=== PATIENT | female | born 1940 | race Caucasian/White ===

== ENCOUNTER 2017-07-08 05:09 | Emergency (ER) | payer MEDICARE, OTHER ==
[~2017-07-08] VITALS: Ht 152.4 cm; Wt 62.5 kg
[~2017-07-08 05:09] MED LIST: ARAV10TA PO; ASPI81TA82 PO; ATOR40TA49 PO; CETI10 PO; CHOL1CAP6 PO; HYDR-3533 PO; LOSA50TA PO; LOTE0.5G; MECL-62 PO; MELA5CAP2 PO; METO50TA PO; NIFE20CA PO; POTA-243 PO; PROB1TAB PO; REFR0.5D4 EACH EYE; TUMS500C PO; VITA100017 PO; tylenol arthritis PO
[2017-07-08 05:12] VITALS: BP 230/95; PULSE 80; RESP 16; TEMP 98; O2SAT 98
[2017-07-08] MEDS ORDERED: NIFE60TA58 PO (06:39)
[2017-07-08] MEDS ORDERED: ASPI-516 CHEW (06:39)
[2017-07-08] MEDS ORDERED: MECL-62 PO (06:39)
[2017-07-08] MEDS ORDERED: MELA5 PO (06:39)
[2017-07-08] MEDS ORDERED: HYDR-3516 PO (06:39)
[2017-07-08] MEDS ORDERED: ARAV10TA PO (06:39)
[2017-07-08] MEDS ORDERED: ATOR40TA16 PO (06:39)
[2017-07-08] MEDS ORDERED: CHOL10008 PO (06:39)
[2017-07-08] MEDS ORDERED: POTA10CA PO (06:39)
[2017-07-08] MEDS ORDERED: METO50TA PO (06:39)
[2017-07-08] MEDS ORDERED: TUMS500C CHEW (06:39)
[2017-07-08 06:40] VITALS: RESP 18
[2017-07-08] MEDS ORDERED: KETOROLAC TROMETHAMINE 60 MG/2 ML (IM) VIAL IM ONE (07:00)
[2017-07-08] MEDS ORDERED: SODIUM CHLORIDE 0.9% FLUSH 10 ML FLUSH IV FLUSH PRN (07:00)
--- NOTE | 2017-07-08 07:07 | PD ---
HPI Chief Complaint: Pain: Acute or Chronic Time Seen by Provider: 06:54 Travel History International Travel<30 days: No Contact w/Intl Traveler<30days: No Traveled to known affect area: No History of Present Illness HPI 77 years old female complains of left flank pain. Patient states that she started having pain across her midback area yesterday. Patient states that the pain more concentrated to the left side midback and left flank area this morning. Patient states that the pain is cramping pain and sharp pain. Patient denies any pain radiation. Patient states that she has nausea but no vomiting or diarrhea. Patient states that she had dysuria this morning. Patient denies any vaginal discharge or bleeding. Patient has history of spinal stenosis of the lumbar spine. On a scale of 1-10 the pain is an 8. 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.) Endocrine: No Gastrointestinal Disorders: No GERD: No Glaucoma: No Genitourinary: Yes Headaches: Yes Hepatitis: No Hiatal Hernia: No Heparin Induced Thrombocytopen: No Hypertension: Yes Immune Disorder: Yes ([employer]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) Implanted Vascular Access Dvce: No Kidney Stones: No Musculoskeletal: Yes Neurologic: Yes (VERTIGO) Psychiatric: No Reproductive: No Respiratory: No Immunizations Current: Yes Migraines: Yes (IN THE PAST 17YRS-34YRS OLD) Radiation Therapy: No Renal Failure: No Seizures: No Sickle Cell Disease: No Thyroid Disease: No Ulcer: No Tetanus Vaccination: > 5 Years Influenza Vaccination: Yes Menopausal: Yes Past Surgical History Abdominal Surgery: Yes (APPENDECTOMY) AICD: No Appendectomy: Yes Arteriovenous Shunt: No Ear Surgery: No Endocrine Surgery: No Eye Surgery: Yes (BILATERAL CATARACTS) Genitourinary Surgery: No Gynecologic Surgery: No Insulin Pump: No Joint Replacement: No Oral Surgery: No Pacemaker: No Other Surgery: Yes Social History Alcohol Use: No Tobacco Use: No (QUIT 22 YRS AGO) Substance Use: No Allergies-Medications (Allergen,Severity, Reaction): Coded Allergies: Sulfa (Sulfonamide Antibiotics) (Unverified Allergy, Severe, RASH, 07/08/17 ) chlorzoxazone (Unverified Allergy, Severe, BECAME HYSTERICAL, 07/08/17) methylprednisolone (Unverified Allergy, Severe, UNK, 07/08/17) 200MG penicillin G (Unverified Allergy, Severe, SOB RASH, 07/08/17) Uncoded Allergies: CARBOCAINE (Allergy, Unknown, UNK, 04/12/15) Reported Meds & Prescriptions Reported Meds & Active Scripts Active Losartan (Losartan Potassium) 50 Mg Tab 50 Mg PO DAILY Lortab 5 mg/325 mg (Hydrocodone/Acetaminophen 5 mg/325 mg) 1 Tab 1 Tab PO Q6H PRN Reported Potassium Chloride ER (Potassium Chloride) 10 Meq Cap 10 Meq PO BID Nifedipine ER 24 HR (Nifedipine) 60 Mg Tab 60 Mg PO BID Metoprolol Tartrate 50 Mg Tab 50 Mg PO BID Melatonin 5 Mg Tab 5 Mg PO HS Meclizine (Meclizine HCl) 25 Mg Tab 25 Mg PO TID PRN Arava (Leflunomide) 10 Mg Tab 10 Mg PO 3XWEEK Hydrocodone-Acetaminophen 5-325 mg Tab 1 Tab PO Q6H PRN Vitamin D3 (Cholecalciferol) 1,000 Unit Cap 1,000 Units PO DAILY Tums (Calcium Carbonate (Antacid)) 500 Mg Chew 500 Mg CHEW PRN Atorvastatin (Atorvastatin Calcium) 40 Mg Tab 40 Mg PO HS Aspirin 81 Mg Chew 81 Mg CHEW DAILY Lipitor 40 Mg Tab (Atorvastatin Calcium) 40 Mg Tab 60 Mg PO DAILY Vitamin C (Ascorbic Acid) 1,000 Mg Tab 1,000 Mg PO DAILY Tums (Calcium Carbonate) 500 Mg Chew 500 Mg PO DAILY PRN Refresh Tears (Carboxymethylcellulose Sodium) 0.5 % Josiane 1 Drop EACH EYE BID PRN Review of Systems General / Constitutional: No: Fever Eyes: No: Visual changes HENT: No: Headaches Cardiovascular: No: Chest Pain or Discomfort Respiratory: No: Shortness of Breath Gastrointestinal: No: Abdominal Pain Genitourinary: No: Dysuria Musculoskeletal: No: Pain Skin: No Rash Neurologic: No: Weakness Psychiatric: No: Depression Endocrine: No: Polydipsia Hematologic/Lymphatic: No: Easy Bruising Physical Exam Narrative GENERAL: Well-nourished, well-developed patient. SKIN: Focused skin assessment warm/dry. HEAD: Normocephalic. EYES: No scleral icterus. No injection or drainage. NECK: Supple, trachea midline. No JVD or lymphadenopathy. CARDIOVASCULAR: Regular rate and rhythm without murmurs, gallops, or rubs. RESPIRATORY: Breath sounds equal bilaterally. No accessory muscle use. GASTROINTESTINAL: Abdomen soft, non-tender, nondistended. MUSCULOSKELETAL: No cyanosis, or edema. BACK: Patient has moderate tenderness on palpation left flank area and upper lumbar area of the left side. No midline tenderness. Neurologic exam normal. Data Data Last Documented VS Vital Signs Date Time Temp Pulse Resp B/P (MAP) Pulse Ox O2 Delivery O2 Flow Rate FiO2 07/08/17 06:43 18 07/08/17 05:12 98.0 80 230/95 (140) 98 Orders Orders Urinalysis - C+S If Indicated (07/08/17 07:00) Ct Abd/Pel W/O Iv Contrast (07/08/17 07:00) Sodium Chloride 0.9% Flush (Ns Flush) (07/08/17 07:00) Ketorolac Inj (Toradol Inj) (07/08/17 07:00) Labs Laboratory Tests Test 07/08/17 06:55 Urine Collection Type CLEAN CATCH Urine Color YELLOW Urine Turbidity CLEAR Urine pH 6.0 Urine Specific [place] 1.009 Urine Protein NEG mg/dL Urine Glucose (UA) NEG mg/dL Urine Ketones NEG mg/dL Urine Occult Blood TRACE Urine Nitrite NEG Urine Bilirubin NEG Urine Leukocyte Esterase SMALL Urine RBC 10-14 /hpf Urine WBC 3-5 /hpf Urine Squamous Epithelial Cells 6-8 /hpf Urine Bacteria RARE /hpf Microscopic Urinalysis Comment CULT NOT INDICATED Urine Collection Time 06:55 [facility] Medical Decision Making Medical Screen Exam Complete: Yes Emergency Medical Condition: Yes Differential Diagnosis 77 years old female with left flank pain. Narrative Course Differential diagnoses including musculoskeletal, pyelonephritis, nephrolithiasis. Diagnosis Primary Impression: Back pain Qualified Codes: M54.9 - Dorsalgia, unspecified Additional Impression: Hematuria Qualified Codes: R31.29 - Other microscopic hematuria Patient Instructions: General Instructions Additional Instructions: Continue with hydrocodone as needed for back pain. Cipro as directed. Follow- up with personal physician. Return if worse. Med/Other Pt SpecificInfo: Prescription(s) given Scripts Ciprofloxacin (Cipro) 500 Mg Tab 500 MG PO BID for Infection, #6 TAB 0 Refills Prov: Wilmer Martínez MD 07/08/17 Hydrocodone-Acetaminophen ([place]) 5 Mg-325 Mg Tab 1 TAB PO Q6H Y for PAIN, #20 TAB 0 Refills Prov: Wilmer Martínez MD 07/08/17 Disposition: 01 DISCHARGE HOME Condition: Stable Wilmer Martínez MD Jul 08, 2017 07:07
[2017-07-08 07:19] LABS: GLUCOSE,URINE NEG (NEG); KETONE, URINE NEG (NEG); NITRITE,URINE NEG (NEG)
[2017-07-08 07:20] LABS: BLOOD, URINE TRACE (NEG)
[2017-07-08 07:29] LABS: METHOD OF COLLECTION CLEAN CATCH; URINE COLOR YELLOW (YELLW/STRAW)
[2017-07-08 07:30] LABS: BACTERIA, URINE RARE /hpf; COMMENT (UR) CULT NOT INDICATED; CULTURE IF INDICATED CULT NOT INDICATED
--- NOTE | 2017-07-08 07:45 | RADRPT ---
EXAM DATE/TIME: 07/08/2017 07:24 [place] COMPARISON: No previous studies available for comparison. INDICATIONS : Left flank pain, nausea. ORAL CONTRAST: No oral contrast ingested. RADIATION DOSE: 12.20 CTDIvol (mGy) MEDICAL HISTORY : Renal disease, end stage. Hypertension. Rheumatoid arthritis.Spinal stenosis. SURGICAL HISTORY : Appendectomy. ENCOUNTER: Initial ACUITY: 1 day PAIN SCALE: 8/10 LOCATION: Left flank TECHNIQUE: Volumetric scanning of the abdomen and pelvis was performed. Using automated exposure control and ad justment of the mA and/or kV according to patient size, radiation dose was kept as low as reasonably achievable to obtain optimal diagnostic quality images. DICOM format image data is available electro nically for review and comparison. FINDINGS: LOWER LUNGS: The visualized lower lungs are clear. LIVER: Homogeneous density without lesion. There is no dilation of the biliary tree. No calcified gallston es. Low-density lesion in the medial left lobe, likely benign. SPLEEN: Normal size without lesion. PANCREAS: Within normal limits. KIDNEYS: Normal in size and shape. There is no mass, stone, or hydronephrosis. ADRENAL GLANDS: Within normal limits. VASCULAR: There is no aortic aneurysm. Extensive atherosclerotic changes of the abdominal aorta and branches. BOWEL/MESENTERY: The stomach, small bowel, and colon demonstrate no acute abnormality. There is no free intraperitone al air or fluid. ABDOMINAL WALL: Within normal limits. RETROPERITONEUM: There is no lymphadenopathy. BLADDER: No wall thickening or mass. REPRODUCTIVE: Within normal limits. INGUINAL: There is no lymphadenopathy or hernia. MUSCULOSKELETAL: Within normal limits for patient age. CONCLUSION: 1. No renal calculi or hydronephrosis. 2. No acute inflammatory process. 3. Subcentimeter hepatic low-density. Jason Rapp MD on July 08, 2017 at 7:40 Board Certified Radiologist. This report was verified electronically.
[2017-07-08] MEDS ORDERED: NORC5TAB PO (08:04)
[2017-07-08] MEDS ORDERED: CIPR-9 PO (08:05)
[2017-07-08 08:06] VITALS: BP 167/77; RESP 18
== END 2017-07-08 08:17 | disposition home or self-care (01) ==
LOC: PHED 05:09
DX: M54.9 Dorsalgia, unspecified (principal); R31.29 Other microscopic hematuria; R30.0 Dysuria
CPT/HCPCS: 74176; 81001; 96372; 99285; J1885

== ENCOUNTER 2017-07-19 08:48 | Emergency (ER) | payer MEDICARE, OTHER ==
[~2017-07-19] VITALS: Ht 152.4 cm; Wt 63.0 kg
[~2017-07-19 08:48] MED LIST changes: +ASPI-516 CHEW; -ASPI81TA82 PO; +ATOR40TA16 PO; -CETI10 PO; +CHOL10008 PO; -CHOL1CAP6 PO; +CIPR-9 PO; +HYDR-3516 PO; -LOTE0.5G; +MELA5 PO; -MELA5CAP2 PO; -NIFE20CA PO; +NIFE60TA58 PO; +NORC5TAB PO; -POTA-243 PO; +POTA10CA PO; -PROB1TAB PO; +TUMS500C CHEW; -tylenol arthritis PO
[2017-07-19 09:07] VITALS: BP 163/79; PULSE 76; RESP 16; TEMP 98; O2SAT 97
--- NOTE | 2017-07-19 09:26 | PD ---
HPI Chief Complaint: Pain: Acute or Chronic Time Seen by Provider: 09:13 Travel History International Travel<30 days: No Contact w/Intl Traveler<30days: No Traveled to known affect area: No History of Present Illness HPI Patient comes in complaining of continued back pain ongoing for at least 3 weeks. Patient was seen here on the second for the same. She had a CT and UA done at that time. Patient states she is taking her hydrocodone along with Flexeril 10 mg for the pain. Patient took hydrocodone prior coming to the emergency department today last took a Flexeril last night. Pain is a sharp burning pain in her right flank that radiates to the left. Patient awoke with worsening pain today. Patient reports she has an appointment with pain management on Monday. Patient states that she followed up with her primary care doctor and was sent to urologist who then sent her to a back specialist. Patient reports has appointment with the back specialist in August. Pain is worse with certain movement. Denies any fevers, chest pain, shortness breath, cough, loss or change in bowel or bladder, or numbness or tingling anywhere. Denies any recent trauma. 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.) Endocrine: No Gastrointestinal Disorders: No GERD: No Glaucoma: No Genitourinary: Yes Headaches: Yes Hepatitis: No Hiatal Hernia: No Heparin Induced Thrombocytopen: No Hypertension: Yes Immune Disorder: Yes ([employer]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) Implanted Vascular Access Dvce: No Kidney Stones: No Musculoskeletal: Yes Neurologic: Yes (VERTIGO) Psychiatric: No Reproductive: No Respiratory: No Immunizations Current: Yes Migraines: Yes (IN THE PAST 17YRS-35YRS OLD) Radiation Therapy: No Renal Failure: No Seizures: No Sickle Cell Disease: No Thyroid Disease: No Ulcer: No ?: Not Menopausal: Yes Past Surgical History Abdominal Surgery: Yes (APPENDECTOMY) AICD: No Appendectomy: Yes Arteriovenous Shunt: No Ear Surgery: No Endocrine Surgery: No Eye Surgery: Yes (BILATERAL CATARACTS) Genitourinary Surgery: No Gynecologic Surgery: No Insulin Pump: No Joint Replacement: No Oral Surgery: No Pacemaker: No Other Surgery: Yes Social History Alcohol Use: No Tobacco Use: No (QUIT 22 YRS AGO) Substance Use: No Allergies-Medications (Allergen,Severity, Reaction): Coded Allergies: Sulfa (Sulfonamide Antibiotics) (Unverified Allergy, Severe, RASH, ) chlorzoxazone (Unverified Allergy, Severe, BECAME HYSTERICAL, 07/19/17) methylprednisolone (Unverified Allergy, Severe, UNK, 07/19/17) 200MG penicillin G (Unverified Allergy, Severe, SOB RASH, 07/19/17) Uncoded Allergies: CARBOCAINE (Allergy, Unknown, UNK, 07/19/17) . Reported Meds & Prescriptions Reported Meds & Active Scripts Active Losartan (Losartan Potassium) 50 Mg Tab 50 Mg PO DAILY Reported Potassium Chloride ER (Potassium Chloride) 10 Meq Cap 10 Meq PO BID Nifedipine ER 24 HR (Nifedipine) 60 Mg Tab 60 Mg PO BID Metoprolol Tartrate 50 Mg Tab 50 Mg PO BID Melatonin 5 Mg Tab 5 Mg PO HS Meclizine (Meclizine HCl) 25 Mg Tab 25 Mg PO TID PRN Arava (Leflunomide) 10 Mg Tab 10 Mg PO 3XWEEK Hydrocodone-Acetaminophen 5-325 mg Tab 1 Tab PO Q6H PRN Vitamin D3 (Cholecalciferol) 1,000 Unit Cap 1,000 Units PO DAILY Tums (Calcium Carbonate (Antacid)) 500 Mg Chew 500 Mg CHEW PRN Atorvastatin (Atorvastatin Calcium) 40 Mg Tab 40 Mg PO HS Aspirin 81 Mg Chew 81 Mg CHEW DAILY Review of Systems Except as stated in HPI: all other systems reviewed are Neg Physical Exam Narrative GENERAL: Well-developed, overly nourished, in no acute distress, and non-ill appearing. SKIN: Focused skin assessment warm and dry. HEAD: Atraumatic. Normocephalic. EYES: Pupils equal and round. EOMI. No scleral icterus. No injection or drainage. ENT: No nasal bleeding or discharge. Mucous membranes pink and moist. NECK: Trachea midline. Supple. No nuclear rigidity. RESPIRATORY: No accessory muscle use. No respiratory distress. MUSCULOSKELETAL: No obvious deformities. No clubbing. No cyanosis. No edema. Full range of motion. No tenderness or crepitus or midline throughout spinal column. Patient reports tenderness to very light palpation right flank. NEUROLOGICAL: Awake and alert. No obvious cranial nerve deficits. Motor grossly within normal limits. Normal speech. PSYCHIATRIC: Appropriate mood and affect; insight and judgment normal. Data Data Last Documented VS Vital Signs Date Time Temp Pulse Resp B/P (MAP) Pulse Ox O2 Delivery O2 Flow Rate FiO2 07/19/17 09:07 98.0 76 16 163/79 (107) 97 Orders Orders Cyclobenzaprine (Flexeril) (07/19/17 09:30) Ketorolac Inj (Toradol Inj) (07/19/17 09:30) Ed Discharge Order (07/19/17 09:31) [facility] Medical Decision Making Medical Screen Exam Complete: Yes Emergency Medical Condition: Yes Differential Diagnosis Fracture, strain, contusion, muscle spasm, musculoskeletal pain Narrative Course The patient presented complaining of back pain. There was no history of recent fall or trauma. There was no evidence to support genitourinary etiology. There is also no evidence to suggest vascular pathology such as AAA dissection. No fevers or other evidence to suspect infectious processes, abscess, osteomyelitis etc. The patients neurological exam is normal with normal motor and sensory. There is no saddle paresthesias reported and no bowel or bladder incontinence or retention. I suspect the pain is mechanical in nature. Clinical suspicion, plan of care and management was discussed with the patient. The patient was instructed to follow up with their health care provider. The patient was also instructed to return if the pain worsened, changed, or developed weakness or bowel or bladder trouble. The patient agreed with plan. Patient in no obvious distress upon re-evaluation. Patient was asked if they wanted to speak to my attending, which the patient did not wish to do at this time. Any questions/concerns in reference to patient diagnosis/condition discussed and clarified prior to patient's discharge. Reinforced sheer importance of close follow up with patient's primary physician or primary care clinic, pain management doctor, and back specialist. Instructed patient to return to ED immediately, if symptoms return/worsen. Patient showed understanding of above instructions. Further instructions and recommendations were detailed in discharge paperwork. Patient left without difficulty out of ED at discharge. Diagnosis Primary Impression: Musculoskeletal back pain Patient Instructions: General Instructions, Musculoskeletal Pain (ED) Additional Instructions: Follow-up with your primary care physician and/or pain management doctor this week for reevaluation. Return to the emergency department if symptoms get worse. Disposition: 01 DISCHARGE HOME Condition: Stable George Barney Jul 19, 2017 09:26
[2017-07-19] MEDS ORDERED: KETOROLAC TROMETHAMINE 60 MG/2 ML (IM) VIAL IM ONE (09:30)
[2017-07-19] MEDS ORDERED: CYCLOBENZAPRINE HCL 10 MG TAB PO ONE (09:30)
== END 2017-07-19 10:00 | disposition home or self-care (01) ==
LOC: PHEFT 08:48
DX: M54.9 Dorsalgia, unspecified (principal); E78.00 Pure hypercholesterolemia, unspecified; I10 Essential (primary) hypertension; Z87.891 Personal history of nicotine dependence
CPT/HCPCS: 96372; 99284; J1885

== ENCOUNTER 2017-08-19 20:11 | Inpatient (IN) | payer MEDICARE, OTHER ==
[~2017-08-19] VITALS: Ht 152.4 cm; Wt 64.8 kg
[~2017-08-19 20:11] MED LIST changes: -ATOR40TA49 PO; -CIPR-9 PO; -HYDR-3533 PO; -NORC5TAB PO; -REFR0.5D4 EACH EYE; -TUMS500C PO; -VITA100017 PO
[2017-08-19 20:15] VITALS: PULSE 86; RESP 16; O2SAT 93
[2017-08-19 20:22] VITALS: BP 227/99; PULSE 86; RESP 16; TEMP 98.4; O2SAT 92
[2017-08-19] MEDS ORDERED: PRED1 PO (20:35)
[2017-08-19] MEDS ORDERED: VOLT1GEL16 (20:35)
--- NOTE | 2017-08-19 20:42 | PD ---
HPI Chief Complaint: Fall Time Seen by Provider: 20:25 Travel History International Travel<30 days: No Contact w/Intl Traveler<30days: No Traveled to known affect area: No History of Present Illness HPI 77-year-old female presents to the emergency department from home by EMS transport after a witnessed non-syncopal slip and fall just prior to arrival to the emergency department with injury to the left hip. According the patient she was in the process of picking up and putting down one of her dogs when she lost her balance and fell backwards and landed on her left hip with pain. Patient was able to stand. Patient states this is a second fall she's had in 2 days. Patient states 2 days ago she did hit her head and face. Patient denies loss of consciousness. Patient denies any neck pain upper back pain and has chronic low back pain with spinal stenosis. Patient states occasionally she'll use a walker and his intended to use a walker today before she lost her balance and fell. Patient does not report any chest pain or shortness of breath. Patient's had no nausea or vomiting. Patient denies any abdominal pain or flank pain. Patient denies any other extremity injury affecting the upper extremity's bilaterally with the right lower extremity. Patient has been seen as recently as 07/19/17 for exacerbation of chronic low back pain but does not complain of exacerbation of back pain at this time. No lower extremity numbness tingling or weakness bladder or bowel dysfunction or saddle anesthesia reported. Patient does have a history of rheumatoid arthritis gastroenteritis heart murmur skin cancer hypertension dyslipidemia diminished hearing headaches hypertension long-term steroid use vertigo migraines prior appendectomy and cataract surgery. Patient rates her current pain after 10 mg of morphine en route by EMS to over 10 in intensity. Symptoms are worsened by attempting to move the left lower extremity. Patient denies taking any blood thinning agents. COUNTS INCLUDE 234 BEDS AT THE [facility] Past Medical History Narrative Medical rheumatoid arthritis gastroenteritis heart murmur skin cancer hypertension dyslipidemia diminished hearing headaches hypertension long-term steroid use vertigo migraines prior appendectomy and cataract surgery; prior tobacco use; nursing notes reviewed Arthritis: Yes (RA AND OA) Asthma: No Autoimmune Disease: No Blood Disorders: No Anxiety: No Depression: No Heart Rhythm Problems: Yes (HEART MURMUR.) Cancer: Yes (SKIN CANCER) Cardiovascular Problems: Yes (htn) High Cholesterol: Yes Chemotherapy: No Chest Pain: No Congestive Heart Failure: No COPD: No Cerebrovascular Accident: No Diabetes: No Diminished Hearing: Yes (12 % LOSS IN LT EAR.) Endocrine: No Gastrointestinal Disorders: No GERD: No Glaucoma: No Genitourinary: Yes Headaches: Yes Hepatitis: No Hiatal Hernia: No Heparin Induced Thrombocytopen: No Hypertension: Yes Immune Disorder: Yes (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) Implanted Vascular Access Dvce: No Kidney Stones: No Musculoskeletal: Yes (CHRONIC BACK PAIN) Neurologic: Yes (VERTIGO) Psychiatric: No Reproductive: No Respiratory: No Immunizations Current: Yes Migraines: Yes (IN THE PAST 17YRS-35YRS OLD) Radiation Therapy: No Renal Failure: No Seizures: No Sickle Cell Disease: No Thyroid Disease: No Ulcer: No Menopausal: Yes Past Surgical History Abdominal Surgery: Yes (APPENDECTOMY) AICD: No Appendectomy: Yes Arteriovenous Shunt: No Ear Surgery: No Endocrine Surgery: No Eye Surgery: Yes (BILATERAL CATARACTS) Genitourinary Surgery: No Gynecologic Surgery: No Insulin Pump: No Joint Replacement: No Oral Surgery: No Pacemaker: No Other Surgery: Yes Social History Alcohol Use: No Tobacco Use: No Substance Use: No Allergies-Medications (Allergen,Severity, Reaction): Coded Allergies: Sulfa (Sulfonamide Antibiotics) (Unverified Allergy, Severe, RASH, 08/19/17 ) chlorzoxazone (Unverified Allergy, Severe, BECAME HYSTERICAL, 08/19/17) methylprednisolone (Unverified Allergy, Severe, UNK, 08/19/17) 200MG penicillin G (Unverified Allergy, Severe, SOB RASH, 08/19/17) Uncoded Allergies: CARBOCAINE (Allergy, Unknown, UNK, 07/19/17) . Reported Meds & Prescriptions Reported Meds & Active Scripts Active Losartan (Losartan Potassium) 50 Mg Tab 50 Mg PO DAILY Reported Prednisone 1 Mg Tab 4 Mg PO DAILY Voltaren (Diclofenac Sodium) 1 % Gel..gram. Potassium Chloride ER (Potassium Chloride) 10 Meq Cap 10 Meq PO BID Nifedipine ER 24 HR (Nifedipine) 60 Mg Tab 60 Mg PO BID Metoprolol Tartrate 50 Mg Tab 50 Mg PO BID Melatonin 5 Mg Tab 5 Mg PO HS Meclizine (Meclizine HCl) 25 Mg Tab 25 Mg PO TID PRN Arava (Leflunomide) 10 Mg Tab 10 Mg PO 3XWEEK Hydrocodone-Acetaminophen 5-325 mg Tab 1 Tab PO Q6H PRN Vitamin D3 (Cholecalciferol) 1,000 Unit Cap 1,000 Units PO DAILY Tums (Calcium Carbonate (Antacid)) 500 Mg Chew 500 Mg CHEW PRN Atorvastatin (Atorvastatin Calcium) 40 Mg Tab 40 Mg PO HS Aspirin 81 Mg Chew 81 Mg CHEW DAILY Review of Systems Except as stated in HPI: all other systems reviewed are Neg General / Constitutional: No: Fever, Chills Eyes: No: Visual changes HENT: No: Headaches, Neck Pain Cardiovascular: No: Chest Pain or Discomfort Respiratory: No: Shortness of Breath Gastrointestinal: No: Nausea, Vomiting, Abdominal Pain Genitourinary: No: Flank Pain Musculoskeletal: Positive: Pain (left hip) Skin: No Rash Neurologic: No: Weakness, Dizziness, Syncope, Focal Abnormalities, Coordination Problem Psychiatric: No: Anxiety Hematologic/Lymphatic: No: Easy Bruising Physical Exam Narrative GENERAL: Well-developed well-nourished female in no acute distress no respiratory distress resting supine with GCS of 15 SKIN: Warm and dry. HEAD: Atraumatic. Normocephalic. EYES: Pupils equal and round. No scleral icterus. No injection or drainage. ENT: No nasal bleeding or discharge. Mucous membranes pink and moist. Small subacute bruise to the left cheek nontender with intact range of motion of mandible and no dental malocclusion airway is patent. NECK: Trachea midline. No JVD. No midline tenderness to direct palpation along the cervical spine no bony step-off. CARDIOVASCULAR: Regular rate and rhythm. RESPIRATORY: No accessory muscle use. Clear to auscultation. Breath sounds equal bilaterally. GASTROINTESTINAL: Abdomen soft, non-tender, nondistended. Hepatic and splenic margins not palpable. MUSCULOSKELETAL: Extremities without clubbing, cyanosis, or edema. No obvious deformities. Attention left lower extremity shortened and externally rotated dorsalis pedis pulse and posterior tibialis pulses 2+ to palpation. NEUROLOGICAL: Awake and alert. No obvious cranial nerve deficits. Motor grossly within normal limits. Five out of 5 muscle strength in the arms and legs. Normal speech. PSYCHIATRIC: Appropriate mood and affect; insight and judgment normal. Data Data Last Documented VS Vital Signs Date Time Temp Pulse Resp B/P (MAP) Pulse Ox O2 Delivery O2 Flow Rate FiO2 08/19/17 21:41 88 16 198/90 (126) 98 Nasal Cannula 2.00 113/18 20:22 98.4 Orders Orders Electrocardiogram (08/19/17 20:33) Complete Blood Count With Diff (08/19/17 20:33) Comprehensive Metabolic Panel (08/19/17 20:33) Prothrombin Time / Inr (Pt) (08/19/17 20:33) Act Partial Throm Time (Ptt) (08/19/17 20:33) Urinalysis - C+S If Indicated (08/19/17 20:33) Type And Screen (08/19/17 20:33) Chest, Single Ap (08/19/17 20:33) Hip, Uni(Ap&Lat) W Ap Pelvis (08/19/17 20:33) Iv Access Insert/Monitor (08/19/17 20:33) Oximetry (08/19/17 20:33) Ice/Cold Pack (08/19/17 20:33) Ecg Monitoring (08/19/17 20:33) Sodium Chloride 0.9% Flush (Ns Flush) (08/19/17 20:45) Ct Brain W/O Iv Contrast(Rout) (08/19/17 ) NPO (08/19/17 20:33) Admit Order (Ed Use Only) (08/19/17 ) Buggyman / Telemetry JOVANNA.Q8H (08/19/17 22:02) Diet Npo (08/20/17 Breakfast) Activity Bed Rest (08/19/17 22:02) Notify Dr: Other (08/19/17 22:02) Consult Orthopedic (08/19/17 ) Traction (08/19/17 22:04) Sodium Chloride 0.9% Flush (Ns Flush) (08/19/17 22:15) Labs Laboratory Tests Test 08/19/17 20:45 White Blood Count 8.8 TH/MM3 Red Blood Count 4.38 MIL/MM3 Hemoglobin 12.6 GM/DL Hematocrit 37.9 % Mean Corpuscular Volume 86.5 FL Mean Corpuscular Hemoglobin 28.7 PG Mean Corpuscular Hemoglobin Concent 33.2 % Red Cell Distribution Width 14.4 % Platelet Count 300 TH/MM3 Mean Platelet Volume 8.0 FL Neutrophils (%) (Auto) 81.9 % Lymphocytes (%) (Auto) 8.5 % Monocytes (%) (Auto) 8.8 % Eosinophils (%) (Auto) 0.1 % Basophils (%) (Auto) 0.7 % Neutrophils # (Auto) 7.2 TH/MM3 Lymphocytes # (Auto) 0.7 TH/MM3 Monocytes # (Auto) 0.8 TH/MM3 Eosinophils # (Auto) 0.0 TH/MM3 Basophils # (Auto) 0.1 TH/MM3 CBC Comment DIFF FINAL Differential Comment Prothrombin Time 9.6 SEC Prothromb Time International Ratio 0.9 RATIO Activated Partial Thromboplast Time 23.8 SEC Urine Color LIGHT-YELLOW Urine Turbidity CLEAR Urine pH 7.0 Urine Specific [place] 1.005 Urine Protein NEG mg/dL Urine Glucose (UA) NEG mg/dL Urine Ketones NEG mg/dL Urine Occult Blood NEG Urine Nitrite NEG Urine Bilirubin NEG Urine Urobilinogen LESS THAN 2.0 MG/DL Urine Leukocyte Esterase NEG Urine RBC LESS THAN 1 /hpf Urine WBC 2 /hpf Urine Squamous Epithelial Cells 1 /hpf Microscopic Urinalysis Comment CATH-CULT NOT IND Blood Urea Nitrogen 13 MG/DL Creatinine 1.16 MG/DL Random Glucose 101 MG/DL Total Protein 7.0 GM/DL Albumin 3.6 GM/DL Calcium Level 8.0 MG/DL Alkaline Phosphatase 67 U/L Aspartate Amino Transf (AST/SGOT) 23 U/L Alanine Aminotransferase (ALT/SGPT) 23 U/L Total Bilirubin 0.2 MG/DL Sodium Level 135 MEQ/L Potassium Level 5.0 MEQ/L Chloride Level 103 MEQ/L Carbon Dioxide Level 25.0 MEQ/L Anion Gap 7 MEQ/L Estimat Glomerular Filtration Rate 45 ML/MIN [facility] Medical Decision Making Medical Screen Exam Complete: Yes Emergency Medical Condition: Yes Medical Record Reviewed: Yes Interpretation(s) EKG: sinus rhythm rate 80 LAD, no ST elevation; rare pvc's ua: wnl Last Impressions Hip and Pelvis X-Ray 08/19/[id number] Signed Impressions: Service Date/Time: Saturday, August 19, 2017 20:53 - CONCLUSION: Acute left femoral neck fracture with inferomedial angulation deformity. Lexa Wilcox MD Chest X-Ray 08/19/[id number] Signed Impressions: Service Date/Time: Saturday, August 19, 2017 20:57 - CONCLUSION: No evidence of acute cardiopulmonary disease. Lexa Wilcox MD Head CT 08/19/17 0000 Signed Impressions: Service Date/Time: Saturday, August 19, 2017 21:02 - CONCLUSION: No acute intracranial abnormality. Lexa Wilcox MD CBC & BMP Diagram 08/19/17 20:45 Total Protein 7.0, Albumin 3.6, Calcium Level 8.0 L, Alkaline Phosphatase 67, Aspartate Amino Transf (AST/SGOT) 23, Alanine Aminotransferase (ALT/SGPT) 23, Total Bilirubin 0.2 Vital Signs Date Time Temp Pulse Resp B/P (MAP) Pulse Ox O2 Delivery O2 Flow Rate FiO2 08/19/17 21:41 88 16 198/90 (126) 98 Nasal Cannula 2.00 08/19/17 20:22 98.4 86 16 227/99 (141) 92 08/19/17 20:15 86 16 93 Room Air 08/19/17 20:15 16 98 Nasal Cannula 2.00 08/19/17 20:15 98 Nasal Cannula 2.00 Differential Diagnosis Hip fracture or pelvis fracture proximal femur fracture contusion subluxation dislocation minor closed head injury ICH arrhythmia in light disturbance anemia UTI Narrative Course IV access obtained by EMS specimens collected and sent for resulting patient placed on school bus monitor EKG ordered imaging studies ordered patient's pain is currently 3/10 in intensity will administer as needed pain medications for symptom relief. Imaging study consistent with femoral neck fracture with angulation Patient remains comfortable family at bedside informed of imaging results and plan for admission Patient's case discussed with on-call orthopedist that she cannot remember the name of her orthopedist Patient recalls needed for orthopedist is Dr. Perez discussed with Dr. Rosenberg requests patient be managed by on-call orthopedist Patient's case discussed with on-call medicine for admission with also consult Physician Communication Physician Communication discussed with Dr Pierce for admission; discussed with Dr Schaefer -->discussed with Dr Rosenberg (covering for Dr Perez) -->requests ortho back up/transportation planning engineer to take the patient ( patient agrees with transportation planning engineer ortho mgt) Diagnosis Primary Impression: Fracture of femoral neck, left Qualified Codes: S72.002A - Fracture of unspecified part of neck of left femur , initial encounter for closed fracture Admitting Information Admitting Physician Requests: Admit Cookie Matthews MD Aug 19, 2017 20:42
[2017-08-19] MEDS ORDERED: SODIUM CHLORIDE 0.9% FLUSH 10 ML FLUSH IVF PRN ×2 (20:45→22:15)
[2017-08-19 21:11] LABS: AUTOMATED NEUTROPHIL # 7.2 TH/MM3 (1.8-7.7); BASOPHIL # 0.1 TH/MM3 (0-0.2); BASOPHIL % 0.7 % (0.0-2.0); BILIRUBIN, URINE NEG (NEG); BLOOD, URINE NEG (NEG); EOSINOPHIL % 0.1 % (0.0-4.0); GLUCOSE,URINE NEG (NEG); HEMATOCRIT 37.9 % (35.0-46.0); HEMOGLOBIN 12.6 GM/DL (11.6-15.3); KETONE, URINE NEG (NEG); LYMPH % 8.5 % (9.0-44.0); LYMPHOCYTE # 0.7 TH/MM3 (1.0-4.8); MEAN CELL VOLUME 86.5 FL (80.0-100.0); MEAN CORPUSCULAR HEMOGLOBIN 28.7 PG (27.0-34.0); MEAN CORPUSCULAR HGB CONC 33.2 % (32.0-36.0); MONO % 8.8 % (0.0-8.0); MONOCYTE # 0.8 TH/MM3 (0-0.9); NEUT % 81.9 % (16.0-70.0); NITRITE,URINE NEG (NEG); PLATELET COUNT 300 TH/MM3 (150-450); RED BLOOD COUNT 4.38 MIL/MM3 (4.00-5.30); RED CELL DISTRIBUTION WIDTH 14.4 % (11.6-17.2); SQUAMOUS EPITHELIAL CELL URINE 1 /hpf (0-5); URINE COLOR LIGHT-YELLOW (YELLW/STRAW); URINE LEUKOCYTE ESTERASE NEG (NEG); WHITE BLOOD COUNT 8.8 TH/MM3 (4.0-11.0)
[2017-08-19 21:18] LABS: INTERNATIONAL NORMALIZED RATIO 0.9 RATIO; PROTHROMBIN TIME - PATIENT 9.6 SEC (9.8-11.6)
--- NOTE | 2017-08-19 21:20 | RADRPT ---
EXAM DATE/TIME: 08/19/2017 20:53 [facility] COMPARISON: No previous studies available for comparison. INDICATIONS : Left hip pain after fall today. MEDICAL HISTORY : Renal disease, end stage. Hypertension. Rheumatoid arthritis.Spinal stenosis. SURGICAL HISTORY : Appendectomy. ENCOUNTER: Initial ACUITY: 1 day PAIN SCORE: 8/10 LOCATION: Left hip. FINDINGS: There is a mildly comminuted fracture of the mid to distal left femoral neck. There is mild inferomed ial angulation deformity. Femoral head appears intact. No subluxations. The bony pelvis is intact and has normal morphology. CONCLUSION: Acute left femoral neck fracture with inferomedial angulation deformity. Lexa Wilcox MD on August 19, 2017 at 21:17 Board Certified Radiologist. This report was verified electronically.
--- NOTE | 2017-08-19 21:21 | RADRPT ---
EXAM DATE/TIME: 08/19/2017 20:57 [facility] COMPARISON: CHEST SINGLE AP, August 24, 2014, 2:37. INDICATIONS : Shortness of breath after fall today. MEDICAL HISTORY : Hypertension. Renal disease, end stage. Rheumatoid arthritis.Spinal stenosis. SURGICAL HISTORY : Appendectomy. ENCOUNTER: Initial ACUITY: 1 day PAIN SCORE: 0/10 LOCATION: Bilateral chest FINDINGS: A single view of the chest demonstrates the lungs to be symmetrically aerated without evidence of mas s, infiltrate or effusion. The cardiomediastinal contours are unremarkable. Osseous structures are intact. CONCLUSION: No evidence of acute cardiopulmonary disease. Lexa Wilcox MD on August 19, 2017 at 21:18 Board Certified Radiologist. This report was verified electronically.
--- NOTE | 2017-08-19 21:22 | RADRPT ---
EXAM DATE/TIME: 08/19/2017 21:02 [facility] COMPARISON: CT BRAIN W/O CONTRAST, August 24, 2014, 3:06. INDICATIONS : Trauma, fall. RADIATION DOSE: 56.35 CTDIvol (mGy) MEDICAL HISTORY : Hypertension. Rheumatoid arthritis. Osteoarthritis.CKD, stage 3. Skin cancer. SURGICAL HISTORY : Appendectomy. ENCOUNTER: Initial ACUITY: 1 day PAIN SCALE: 3/10 LOCATION: cranial TECHNIQUE: Multiple contiguous axial images were obtained of the head. Using automated exposure control and adj ustment of the mA and/or kV according to patient size, radiation dose was kept as low as reasonably a chievable to obtain optimal diagnostic quality images. DICOM format image data is available electro nically for review and comparison. FINDINGS: CEREBRUM: The ventricles are normal for age. No evidence of midline shift, mass lesion, hemorrhage or acute in farction. No extra-axial fluid collections are seen. POSTERIOR FOSSA: The cerebellum and brainstem are intact. The 4th ventricle is midline. The cerebellopontine angle i s unremarkable. EXTRACRANIAL: The visualized portion of the orbits is intact. SKULL: The calvaria is intact. No evidence of skull fracture. CONCLUSION: No acute intracranial abnormality. Lexa Wilcox MD on August 19, 2017 at 21:19 Board Certified Radiologist. This report was verified electronically.
[2017-08-19 21:25] LABS: ALKALINE PHOSPHATASE 67 U/L (45-117); ALT (GPT) 23 U/L (10-53); TOTAL BILIRUBIN ADULT 0.2 MG/DL (0.2-1.0)
[2017-08-19 21:36] LABS: ALBUMIN 3.6 GM/DL (3.4-5.0); AST (GOT) 23 U/L (15-37); BLOOD UREA NITROGEN 13 MG/DL (7-18); CHLORIDE 103 MEQ/L (98-107); CREATININE 1.16 MG/DL (0.50-1.00); GLOMERULAR FILTRATION RATE 45 ML/MIN (>89); GLUCOSE,RANDOM 101 MG/DL (74-106); SODIUM (NA) 135 MEQ/L (136-145)
[2017-08-19 21:41] VITALS: BP 198/90; PULSE 88; RESP 16; O2SAT 98
[2017-08-19] MEDS ORDERED: ACETAMINOPHEN 325 MG TAB PO PRN (22:00)
[2017-08-19] MEDS ORDERED: MAGNESIUM HYDROXIDE SUSP 30 ML CUP PO PRN (22:00)
[2017-08-19] MEDS ORDERED: LACTULOSE SYRUP 20 GM/30 ML CUP PO PRN (22:00)
[2017-08-19] MEDS ORDERED: SENNOSIDES 8.6 MG TAB PO PRN (22:00)
[2017-08-19] MEDS ORDERED: SODIUM CHLORIDE 0.9% FLUSH 10 ML FLUSH IV FLUSH PRN (22:00)
[2017-08-19] MEDS ORDERED: BISACODYL 10 MG SUPP RECTAL PRN (22:00)
[2017-08-19] MEDS ORDERED: MECLIZINE HCL 25 MG TAB PO PRN (22:00)
--- NOTE | 2017-08-19 22:06 | HHI.HP ---
[facility] Primary Care Physician Erasmo Griffith MD Admission Diagnosis Left femoral neck fracture Diagnoses: (1) Fall Diagnosis: Principal (2) Fracture of femoral neck, left Diagnosis: Principal (3) HTN (hypertension) Diagnosis: Principal (4) Renal insufficiency Diagnosis: Principal Travel History International Travel<30 Days: No Contact w/Intl Traveler <30 Da: No Traveled to Known Affected Are: No History of Present Illness This is a 77-year-old female with a PMH of HTN, Hyperlipidemia, Vertigo, Chronic Back Pain and Arthritis who is brought to the ER by EMS secondary to fall with complaints of left hip pain. Per pt she had picked up her dog and went to put it down when she lost her balance, fell onto left hip w/ immediate pain. No LOC. Pain is constant, severe, 10/10, non-radiating, worse w/ movement. BP 227/99, HR 86, O2 sat 92% on RA, Afebrile. CBC unremarkable. Creatinine 1.16, producing 1.13 on 08/26/14. INR 0.9. UA negative. CXR with no acute findings. Hip X-ray with acute left femoral neck fracture with inferomedial angulation deformity. CT Abdomen no acute findings. Ortho consulted by ER physician, plan is for surgical intervention. Review of Systems Except as stated in HPI: all other systems reviewed are Neg ROS: 14 point review of systems otherwise negative. Past Family Social History Past Medical History PMH: HTN, Hyperlipidemia, Vertigo, Chronic Back Pain and Arthritis Past Surgical History PAST SURGICAL HISTORY: Appendectomy, Cataract Surgery Allergies: Coded Allergies: Sulfa (Sulfonamide Antibiotics) (Unverified Allergy, Severe, RASH, 08/19/17 ) chlorzoxazone (Unverified Allergy, Severe, BECAME HYSTERICAL, 08/19/17) methylprednisolone (Unverified Allergy, Severe, UNK, 08/19/17) 200MG penicillin G (Unverified Allergy, Severe, SOB RASH, 08/19/17) Uncoded Allergies: CARBOCAINE (Allergy, Unknown, UNK, 07/19/17) . Family History PAST FAMILY HISTORY: Reviewed. No h/o DM or CAD Social History PAST SOCIAL HISTORY: Negative for alcohol, tobacco or drugs. Physical Exam Vital Signs Vital Signs Date Time Temp Pulse Resp B/P (MAP) Pulse Ox O2 Delivery O2 Flow Rate FiO2 08/19/17 21:41 88 16 198/90 (126) 98 Nasal Cannula 2.00 08/19/17 20:22 98.4 86 16 227/99 (141) 92 08/19/17 20:15 86 16 93 Room Air 08/19/17 20:15 16 98 Nasal Cannula 2.00 08/19/17 20:15 98 Nasal Cannula 2.00 Physical Exam PE: GENERAL: Pleasant elderly white female in mild distress secondary to pain HEENT: PERRLA, EOMI. No scleral icterus or conjunctival pallor. No lid lag or facial droop. CARDIOVASCULAR: Regular rate and rhythm. No obvious murmurs to auscultation. No chest tenderness to palpation. RESPIRATORY: No obvious rhonchi or wheezing. Clear to auscultation. Breath sounds equal bilaterally. GASTROINTESTINAL: Abdomen soft, non-tender, nondistended. BS normal. MUSCULOSKELETAL: Extremities without clubbing, cyanosis, or edema. No obvious deformities. Decreased ROM of left hip secondary to injury. Pulses intact. NEUROLOGICAL: Awake, alert and oriented x4. No focal neurologic deficits. Moving both upper and lower extremities spontaneously. Laboratory Laboratory Tests Test 08/19/17 20:45 White Blood Count 8.8 Red Blood Count 4.38 Hemoglobin 12.6 Hematocrit 37.9 Mean Corpuscular Volume 86.5 Mean Corpuscular Hemoglobin 28.7 Mean Corpuscular Hemoglobin Concent 33.2 Red Cell Distribution Width 14.4 Platelet Count 300 Mean Platelet Volume 8.0 Neutrophils (%) (Auto) 81.9 Lymphocytes (%) (Auto) 8.5 Monocytes (%) (Auto) 8.8 Eosinophils (%) (Auto) 0.1 Basophils (%) (Auto) 0.7 Neutrophils # (Auto) 7.2 Lymphocytes # (Auto) 0.7 Monocytes # (Auto) 0.8 Eosinophils # (Auto) 0.0 Basophils # (Auto) 0.1 CBC Comment DIFF FINAL Differential Comment Prothrombin Time 9.6 Prothromb Time International Ratio 0.9 Activated Partial Thromboplast Time 23.8 Urine Color LIGHT-YELLOW Urine Turbidity CLEAR Urine pH 7.0 Urine Specific [place] 1.005 Urine Protein NEG Urine Glucose (UA) NEG Urine Ketones NEG Urine Occult Blood NEG Urine Nitrite NEG Urine Bilirubin NEG Urine Urobilinogen LESS THAN 2.0 Urine Leukocyte Esterase NEG Urine RBC LESS THAN 1 Urine WBC 2 Urine Squamous Epithelial Cells 1 Microscopic Urinalysis Comment CATH-CULT NOT IND Blood Urea Nitrogen 13 Creatinine 1.16 Random Glucose 101 Total Protein 7.0 Albumin 3.6 Calcium Level 8.0 Alkaline Phosphatase 67 Aspartate Amino Transf (AST/SGOT) 23 Alanine Aminotransferase (ALT/SGPT) 23 Total Bilirubin 0.2 Sodium Level 135 Potassium Level 5.0 Chloride Level 103 Carbon Dioxide Level 25.0 Anion Gap 7 Estimat Glomerular Filtration Rate 45 Result Diagram: 08/19/17204408/19/172044 Caprini VTE Risk Assessment Caprini VTE Risk Assessment: Mod/High Risk (score >= 2) Caprini Risk Assessment Model Point Value = 1 Point Value = 2 Point Value = 3 Point Value = 5 Age 41-60 Minor surgery BMI > 25 kg/m2 Swollen legs Varicose veins or History of unexplained or recurrent spontaneous Oral contraceptives or hormone replacement Sepsis (< 1 month) Serious lung disease, including pneumonia (< 1 month) Abnormal pulmonary function Acute myocardial infarction Congestive heart failure (< 1 month) History of inflammatory bowel disease Medical patient at bed rest Age 61-74 Arthroscopic surgery Major open surgery (> 45 min) Laparoscopic surgery (> 45 min) Malignancy Confined to bed (> 72 hours) Immobilizing plaster cast Central venous access Age >= 75 History of VTE Family history of VTE Factor V Leiden Prothrombin [id number] Lupus anticoagulant Anticardiolipin antibodies Elevated serum homocysteine Heparin-induced thrombocytopenia Other congenital or acquired thrombophilia Stroke (< 1 month) Elective arthroplasty Hip, pelvis, or leg fracture Acute spinal cord injury (< 1 month) Prophylaxis Regimen Total Risk Factor Score Risk Level Prophylaxis Regimen 0-1 Low Early ambulation 2 Moderate Order ONE of the following: *Sequential Compression Device (SCD) *Heparin 5000 units SQ BID 3-4 Higher Order ONE of the following medications: *Heparin 5000 units SQ TID *Enoxaparin/Lovenox 40 mg SQ daily (WT < 150 kg, CrCl > 30 mL/min) *Enoxaparin/Lovenox 30 mg SQ daily (WT < 150 kg, CrCl > 10-29 mL/min) *Enoxaparin/Lovenox 30 mg SQ BID (WT < 150 kg, CrCl > 30 mL/min) AND/OR *Sequential Compression Device (SCD) 5 or more Highest Order ONE of the following medications: *Heparin 5000 units SQ TID (Preferred with Epidurals) *Enoxaparin/Lovenox 40 mg SQ daily (WT < 150 kg, CrCl > 30 mL/min) *Enoxaparin/Lovenox 30 mg SQ daily (WT < 150 kg, CrCl > 10-29 mL/min) *Enoxaparin/Lovenox 30 mg SQ BID (WT < 150 kg, CrCl > 30 mL/min) AND *Sequential Compression Device (SCD) Assessment and Plan Problem List: (1) Fall ICD Code: W19.XXXA - Unspecified fall, initial encounter (2) Fracture of femoral neck, left ICD Code: S72.002A - Fracture of unspecified part of neck of left femur, initial encounter for closed fracture Status: Acute (3) Renal insufficiency ICD Code: N28.9 - Disorder of kidney and ureter, unspecified (4) HTN (hypertension) ICD Code: I10 - Essential (primary) hypertension Assessment and Plan A/P: 1. Fall: s/p mechanical fall, no LOC. CT Head/C-Spine w/ no acute findings, images reviewed by me. 2. Left Hip Fx: secondary to above, X-ray w/ left femoral neck fracture, images reviewed by me. Ortho consulted by ER physician, plan for surgical intervention. NPO, IVF, analgesics/antiemetics. Pre-op labs essentially unremarkable, CXR reviewed by me, no acute findings. 3. HTN: Uncontrolled. BP 227/103, HR 86, likely compounded by pain complaints. Optimize pain control, resume home Metoprolol and Nifedipine, monitor BP, additional antihypertensives as needed for BP >180 4. Renal Insufficiency: Acute on Chronic. Creatinine 1.16, previously 1.13 on 08/26/14. U/a negative. IVF for hydration, repeat labs in am. 5. DVT Prophylaxis: Anticoagulation post op per Ortho 6. Social work for d/c planning as needed. 7. Labs/records/imaging reviewed by me, case discussed at length w/ ER physician. Physician Certification 2 Midnight Certification Type: Admission for Inpatient Services Order for Inpatient Services The services are ordered in accordance with Medicare regulations or non- Medicare payer requirements, as applicable. In the case of services not specified as inpatient-only, they are appropriately provided as inpatient services in accordance with the 2-midnight benchmark. Estimated LOS (days): 2 days is the estimated time the patient will need to remain in the hospital, assuming treatment plan goals are met and no additional complications. Post-Hospital Plan: Not yet determined Problem Qualifiers (1) Fracture of femoral neck, left: Qualified Codes: S72.002A - Fracture of unspecified part of neck of left femur , initial encounter for closed fracture Brittaney Pierce MD Aug 19, 2017 22:06
[2017-08-19] MEDS ORDERED: CYCLOBENZAPRINE HCL 10 MG TAB PO PRN (22:45)
[2017-08-19] MEDS: SODIUM CHLOR 0.9% 1000 ML INJ 1,000 ML IV SCH (22:58)
[2017-08-19] MEDS: MORPHINE SULFATE 2 MG/ML INJ IV PUSH PRN (22:59)
[2017-08-19] MEDS: ATORVASTATIN 40 MG TAB PO SCH (23:15)
[2017-08-19] MEDS: MELATONIN 5 MG TAB PO SCH (23:15)
[2017-08-19] MEDS: NIFEdipine 60 MG SUSTAINED RELEASE TAB PO SCH (23:16)
[2017-08-19] MEDS: METOPROLOL TARTRATE 50 MG TAB PO SCH (23:39)
[2017-08-19 23:49] VITALS: BP 230/94; PULSE 80; RESP 16; O2SAT 97
[2017-08-20] VITALS (13 sets, daily range): BP systolic 151–220; BP diastolic 65–101; PULSE 78–94; RESP 16–18; TEMP 99; O2SAT 95–98
[2017-08-20] MEDS ORDERED: METOPROLOL TARTRATE 5 MG/5 ML VIAL IV PUSH ONE ×2 (01:00→03:15)
[2017-08-20] MEDS ORDERED: hydrALAZINE HCL 20 MG/ML VIAL IV PUSH ONE ×3 (02:15→09:00)
[2017-08-20] MEDS: MORPHINE SULFATE 2 MG/ML INJ IV PUSH PRN (04:58)
[2017-08-20] MEDS: ONDANSETRON HCL 4 MG/2 ML VIAL IVP PRN (04:58)
[2017-08-20 07:02] LABS: BASOPHIL # 0.1 TH/MM3 (0-0.2); BASOPHIL % 0.5 % (0.0-2.0); EOSINOPHIL % 0.1 % (0.0-4.0); HEMATOCRIT 41.1 % (35.0-46.0); HEMOGLOBIN 13.5 GM/DL (11.6-15.3); LYMPHOCYTE # 0.6 TH/MM3 (1.0-4.8); MEAN CELL VOLUME 86.9 FL (80.0-100.0); MEAN CORPUSCULAR HEMOGLOBIN 28.6 PG (27.0-34.0); MEAN CORPUSCULAR HGB CONC 32.9 % (32.0-36.0); MEAN PLATELET VOLUME 8.2 FL (7.0-11.0); MONO % 4.8 % (0.0-8.0); MONOCYTE # 0.7 TH/MM3 (0-0.9); NEUT % 90.6 % (16.0-70.0); PLATELET COUNT 248 TH/MM3 (150-450); RED BLOOD COUNT 4.73 MIL/MM3 (4.00-5.30); RED CELL DISTRIBUTION WIDTH 14.7 % (11.6-17.2); WHITE BLOOD COUNT 14.4 TH/MM3 (4.0-11.0)
[2017-08-20 07:13] LABS: ALBUMIN 3.4 GM/DL (3.4-5.0); AST (GOT) 11 U/L (15-37); BICARBONATE 25.3 MEQ/L (21.0-32.0); BLOOD UREA NITROGEN 12 MG/DL (7-18); CALCIUM 8.3 MG/DL (8.5-10.1); CHLORIDE 101 MEQ/L (98-107); CREATININE 1.04 MG/DL (0.50-1.00); GLOMERULAR FILTRATION RATE 52 ML/MIN (>89); GLUCOSE,RANDOM 131 MG/DL (74-106); SODIUM (NA) 135 MEQ/L (136-145)
[2017-08-20 07:14] LABS: ALT (GPT) 23 U/L (10-53)
[2017-08-20 07:17] LABS: ALKALINE PHOSPHATASE 58 U/L (45-117); TOTAL BILIRUBIN ADULT 0.5 MG/DL (0.2-1.0); TOTAL PROTEIN 6.9 GM/DL (6.4-8.2)
--- NOTE | 2017-08-20 07:51 | PD.CONS ---
HPI Service Orthopedic Surgeons Consult Requested By Primary Care Physician Erasmo Griffith MD Admission Diagnosis Left femoral neck fracture Diagnoses: (1) Fall (2) Fracture of femoral neck, left (3) Renal insufficiency (4) HTN (hypertension) Chief Complaint: Left Hip pain History of Present Illness 77 yo female with mechanical fall and injury to left hip. Xrays reveal varus malaligned femoral neck fracture. she had a fall 3 days before and bruised her left cheek. she has had elevated BP in ER. Past Family Social History Past Medical History PMH: HTN, Hyperlipidemia, Vertigo, Chronic Back Pain and Arthritis Past Surgical History PAST SURGICAL HISTORY: Appendectomy, Cataract Surgery Allergies: Coded Allergies: Sulfa (Sulfonamide Antibiotics) (Unverified Allergy, Severe, RASH, 08/19/17 ) chlorzoxazone (Unverified Allergy, Severe, BECAME HYSTERICAL, 08/19/17) methylprednisolone (Unverified Allergy, Severe, UNK, 08/19/17) 200MG penicillin G (Unverified Allergy, Severe, SOB RASH, 08/19/17) Uncoded Allergies: CARBOCAINE (Allergy, Unknown, UNK, 07/19/17) . Active Ordered Medications Current Medications Medications (Trade) Dose Ordered Sig/Sarmad Route Start Time Stop Time Status Last Admin Sodium Chloride 1,000 ml @ 100 mls/hr Q10H IV 08/19/17 21:58 08/19/17 22:58 (NS Flush) 2 ml UNSCH PRN IV FLUSH 08/19/17 22:00 (NS Flush) 2 ml BID IV FLUSH 08/20/17 09:00 (Zofran Inj) 4 mg Q6H PRN IVP 08/19/17 22:00 08/20/17 04:58 (Tylenol) 650 mg Q6H PRN PO 08/19/17 22:00 ([place]well 5-325 Mg) 1 tab Q4H PRN PO 08/19/17 22:00 (Morphine Inj) 2 mg Q3H PRN IV PUSH 08/19/17 22:00 08/20/17 04:58 (Gertrudis-Colace) 1 tab BID PO 08/20/17 09:00 (Milk Of Magnesia Liq) 30 ml Q12H PRN PO 08/19/17 22:00 (Senokot) 17.2 mg Q12H PRN PO 08/19/17 22:00 (Dulcolax Supp) 10 mg DAILY PRN RECTAL 08/19/17 22:00 (Lactulose Liq) 30 ml DAILY PRN PO 08/19/17 22:00 (Lipitor) 40 mg HS PO 08/19/17 22:00 08/19/17 23:15 (Cozaar) 50 mg DAILY PO 08/20/17 09:00 (Antivert) 25 mg TID PRN PO 08/19/17 22:00 (Melatonin) 5 mg HS PO 08/19/17 22:00 08/19/17 23:15 (Lopressor) 50 mg BID PO 08/19/17 22:00 08/19/17 23:39 (Procardia Xl) 60 mg BID PO 08/19/17 22:00 08/19/17 23:16 (Flexeril) 10 mg Q8H PRN PO 08/19/17 22:45 08/19/17 22:59 Reported Meds & Active Scripts Active Losartan (Losartan Potassium) 50 Mg Tab 50 Mg PO DAILY Reported Prednisone 1 Mg Tab 4 Mg PO DAILY Voltaren (Diclofenac Sodium) 1 % Gel..gram. Potassium Chloride ER (Potassium Chloride) 10 Meq Cap 10 Meq PO BID Nifedipine ER 24 HR (Nifedipine) 60 Mg Tab 60 Mg PO BID Metoprolol Tartrate 50 Mg Tab 50 Mg PO BID Melatonin 5 Mg Tab 5 Mg PO HS Meclizine (Meclizine HCl) 25 Mg Tab 25 Mg PO TID PRN Arava (Leflunomide) 10 Mg Tab 10 Mg PO 3XWEEK Hydrocodone-Acetaminophen 5-325 mg Tab 1 Tab PO Q6H PRN Vitamin D3 (Cholecalciferol) 1,000 Unit Cap 1,000 Units PO DAILY Tums (Calcium Carbonate (Antacid)) 500 Mg Chew 500 Mg CHEW PRN Atorvastatin (Atorvastatin Calcium) 40 Mg Tab 40 Mg PO HS Aspirin 81 Mg Chew 81 Mg CHEW DAILY Family History PAST FAMILY HISTORY: Reviewed. No h/o DM or CAD Social History PAST SOCIAL HISTORY: Negative for alcohol, tobacco or drugs. Physical Exam Vital Signs Vital Signs Date Time Temp Pulse Resp B/P (MAP) Pulse Ox O2 Delivery O2 Flow Rate FiO2 08/20/17 06:46 86 18 175/81 (112) 98 Room Air 08/20/17 05:36 86 18 183/79 (113) 98 Room Air 08/20/17 04:10 88 18 175/72 (106) 98 Room Air 08/20/17 03:40 88 18 195/78 (117) 98 Room Air 08/20/17 02:57 91 16 197/87 (123) 98 Nasal Cannula 3.00 08/20/17 01:35 81 209/94 (132) 08/20/17 01:15 81 220/101 (140) 08/20/17 00:35 78 16 190/89 (122) 97 Nasal Cannula 2.00 08/19/17 23:49 80 16 230/94 (139) 97 Nasal Cannula 2.00 08/19/17 21:41 88 16 198/90 (126) 98 Nasal Cannula 2.00 08/19/17 20:22 98.4 86 16 227/99 (141) 92 08/19/17 20:15 86 16 93 Room Air 08/19/17 20:15 16 98 Nasal Cannula 2.00 08/19/17 20:15 98 Nasal Cannula 2.00 alert oriented and appropriate Patient's son at bedside Physical Exam Left hip tender to palpation skin intact kne exam benign calves soft NVI negative jennie's Laboratory Laboratory Tests Test 08/19/17 20:45 08/20/17 05:52 White Blood Count 8.8 14.4 Red Blood Count 4.38 4.73 Hemoglobin 12.6 13.5 Hematocrit 37.9 41.1 Mean Corpuscular Volume 86.5 86.9 Mean Corpuscular Hemoglobin 28.7 28.6 Mean Corpuscular Hemoglobin Concent 33.2 32.9 Red Cell Distribution Width 14.4 14.7 Platelet Count 300 248 Mean Platelet Volume 8.0 8.2 Neutrophils (%) (Auto) 81.9 90.6 Lymphocytes (%) (Auto) 8.5 4.0 Monocytes (%) (Auto) 8.8 4.8 Eosinophils (%) (Auto) 0.1 0.1 Basophils (%) (Auto) 0.7 0.5 Neutrophils # (Auto) 7.2 13.0 Lymphocytes # (Auto) 0.7 0.6 Monocytes # (Auto) 0.8 0.7 Eosinophils # (Auto) 0.0 0.0 Basophils # (Auto) 0.1 0.1 CBC Comment DIFF FINAL AUTO DIFF Differential Comment Prothrombin Time 9.6 Prothromb Time International Ratio 0.9 Activated Partial Thromboplast Time 23.8 Urine Color LIGHT-YELLOW Urine Turbidity CLEAR Urine pH 7.0 Urine Specific [place] 1.005 Urine Protein NEG Urine Glucose (UA) NEG Urine Ketones NEG Urine Occult Blood NEG Urine Nitrite NEG Urine Bilirubin NEG Urine Urobilinogen LESS THAN 2.0 Urine Leukocyte Esterase NEG Urine RBC LESS THAN 1 Urine WBC 2 Urine Squamous Epithelial Cells 1 Microscopic Urinalysis Comment CATH-CULT NOT IND Blood Urea Nitrogen 13 12 Creatinine 1.16 1.04 Random Glucose 101 131 Total Protein 7.0 6.9 Albumin 3.6 3.4 Calcium Level 8.0 8.3 Alkaline Phosphatase 67 58 Aspartate Amino Transf (AST/SGOT) 23 11 Alanine Aminotransferase (ALT/SGPT) 23 23 Total Bilirubin 0.2 0.5 Sodium Level 135 135 Potassium Level 5.0 4.2 Chloride Level 103 101 Carbon Dioxide Level 25.0 25.3 Anion Gap 7 9 Estimat Glomerular Filtration Rate 45 52 Result Diagram: 08/20/17 0552 08/20/17 0552 Assessment & Plan Problem List: (1) Fracture of femoral neck, left ICD Codes: S72.002A - Fracture of unspecified part of neck of left femur, initial encounter for closed fracture Status: Acute Qualifiers: Qualified Codes: S72.002A - Fracture of unspecified part of neck of left femur, initial encounter for closed fracture Plan: Options discussed Recommend Hemiarthroplasty for fracture Informed consent obtained Rick Schaefer MD Aug 20, 2017 07:51
[2017-08-20] MEDS: SODIUM CHLOR 0.9% 1000 ML INJ 1,000 ML IV SCH ×2 (08:23→17:58)
[2017-08-20] MEDS: SODIUM CHLORIDE 0.9% FLUSH 10 ML FLUSH IV FLUSH SCH ×3 (08:24→19:41)
[2017-08-20] MEDS: NIFEdipine 60 MG SUSTAINED RELEASE TAB PO SCH ×2 (08:24→20:00)
[2017-08-20] MEDS: METOPROLOL TARTRATE 50 MG TAB PO SCH ×2 (08:24→19:56)
[2017-08-20] MEDS: DOCUSATE SODIUM 50 MG/SENNA 8.6 MG TAB PO SCH ×2 (08:24→19:55)
[2017-08-20] MEDS: LOSARTAN 50 MG TAB PO SCH (08:24)
--- NOTE | 2017-08-20 08:32 | HHI.PR ---
Subjective Remarks Went for OR, seen in PACU after the surgery. Patient is sleepy . Has no pain at this ravi. BP was noted elevated overnight and prior to surgery received labetalol and also hydralazine IV. BP is better controlled after surgery No n/v /d/c. No fever or chills. Objective Vitals Vital Signs Date Time Temp Pulse Resp B/P (MAP) Pulse Ox O2 Delivery O2 Flow Rate FiO2 08/20/17 08:27 82 219/97 (137) 08/20/17 07:47 206/91 (129) 08/20/17 06:46 86 18 175/81 (112) 98 Room Air 08/20/17 05:36 86 18 183/79 (113) 98 Room Air 08/20/17 04:10 88 18 175/72 (106) 98 Room Air 08/20/17 03:40 88 18 195/78 (117) 98 Room Air 08/20/17 02:57 91 16 197/87 (123) 98 Nasal Cannula 3.00 08/20/17 01:35 81 209/94 (132) 08/20/17 01:15 81 220/101 (140) 08/20/17 00:35 78 16 190/89 (122) 97 Nasal Cannula 2.00 08/19/17 23:49 80 16 230/94 (139) 97 Nasal Cannula 2.00 08/19/17 21:41 88 16 198/90 (126) 98 Nasal Cannula 2.00 08/19/17 20:22 98.4 86 16 227/99 (141) 92 08/19/17 20:15 86 16 93 Room Air 08/19/17 20:15 16 98 Nasal Cannula 2.00 08/19/17 20:15 98 Nasal Cannula 2.00 Result Diagram: 08/20/17 0552 08/20/17 0552 Imaging Last Impressions Hip and Pelvis X-Ray 08/19/172032 Signed Impressions: Service Date/Time: Saturday, August 19, 2017 20:53 - CONCLUSION: Acute left femoral neck fracture with inferomedial angulation deformity. Lexa Wilcox MD Chest X-Ray 08/19/172032 Signed Impressions: Service Date/Time: Saturday, August 19, 2017 20:57 - CONCLUSION: No evidence of acute cardiopulmonary disease. Lexa Wilcox MD Head CT 08/19/17 0000 Signed Impressions: Service Date/Time: Saturday, August 19, 2017 21:02 - CONCLUSION: No acute intracranial abnormality. Lexa Wilcox MD Objective Remarks GENERAL: Pleasant elderly white female in nad. HEENT: PERRLA, EOMI. No scleral icterus or conjunctival pallor. No lid lag or facial droop. CARDIOVASCULAR: Regular rate and rhythm. No obvious murmurs to auscultation. No chest tenderness to palpation. RESPIRATORY: No obvious rhonchi or wheezing. Clear to auscultation. Breath sounds equal bilaterally. GASTROINTESTINAL: Abdomen soft, non-tender, nondistended. BS normal. MUSCULOSKELETAL: Extremities without clubbing, cyanosis, or edema. No obvious deformities. S/p surgery left hip. Pulses intact. NEUROLOGICAL: Awake, alert and oriented x4. No focal neurologic deficits. Moving both upper and lower extremities spontaneously. A/P Problem List: (1) Fall ICD Code: W19.XXXA - Unspecified fall, initial encounter (2) Fracture of femoral neck, left ICD Code: S72.002A - Fracture of unspecified part of neck of left femur, initial encounter for closed fracture Status: Acute (3) Renal insufficiency ICD Code: N28.9 - Disorder of kidney and ureter, unspecified (4) HTN (hypertension) ICD Code: I10 - Essential (primary) hypertension Assessment and Plan 1. Fall: s/p mechanical fall, no LOC. CT Head/C-Spine w/ no acute findings, images reviewed by me. Ortho recommends hemiarthroplasty for fracture 2. Left Hip Fx: secondary to above, X-ray w/ left femoral neck fracture, images reviewed by me. Ortho consulted by ER physician, plan for surgical intervention. NPO, advance diet to healthy heart after surgery. IVF, analgesics/antiemetics. Pre-op labs essentially unremarkable, CXR reviewed by me, no acute findings. S/P left hip arthroplasty. 3. HTN: Uncontrolled. BP 227/103, HR 86, likely compounded by pain complaints. Optimize pain control, resume home Metoprolol and Nifedipine, monitor BP, given additional labetalol and hydralazineprior to surgery, for BP >180. bP is better controlled after the surgery 4. Renal Insufficiency: Acute on Chronic. Creatinine 1.16, previously 1.13 on 08/26/14. U/a negative. IVF for hydration, repeat labs in am. 5. DVT Prophylaxis: Anticoagulation post op per Ortho 6. Social work for d/c planning as needed. Discussed with the patient, nurse Problem Qualifiers (1) Fracture of femoral neck, left: Qualified Codes: S72.002A - Fracture of unspecified part of neck of left femur , initial encounter for closed fracture Alyssa Thomas MD Aug 20, 2017 08:32
[2017-08-20] MEDS ORDERED: LABETALOL HCL 100 MG/20 ML VIAL IV PUSH ONE (09:00)
[2017-08-20 09:19] LABS: BANDS 16 % (0-6); LYMPHOCYTES 2 % (9-44); MONOCYTES 5 % (0-8); NEUTROPHIL # MANUAL DIFF 13.4 TH/MM3 (1.8-7.7); POLYS (SEG NEUTROPHILS) 77 % (16-70)
[2017-08-20 09:20] LABS: OVALOCYTES 1+ (NORMAL)
[2017-08-20] MEDS ORDERED: DIMETHICONE/OXYBENZONE/PADMIATE LIP BALM 4.25 GM TOPICAL ONE (11:02)
[2017-08-20] MEDS ORDERED: PROPOFOL 500 MG/50 ML INJ 50 ML ONE (11:47)
[2017-08-20] MEDS ORDERED: ePHEDrine/NS 25 MG/5 ML SYRINGE IV ONE (12:00)
[2017-08-20] MEDS ORDERED: ONDANSETRON HCL 4 MG/2 ML VIAL IV ONE (12:00)
[2017-08-20] MEDS ORDERED: PHENYLEPH/NS 1000 MCG/10 ML SYR IV ONE (12:00)
[2017-08-20] MEDS ORDERED: LIDOCAINE HCL 1% PF 5 ML SYRINGE OTHER ONE (12:00)
[2017-08-20] MEDS ORDERED: PROPOFOL 200 MG/20 ML AMP IV ONE (12:00)
[2017-08-20] MEDS ORDERED: GENTAMICIN SULFATE 80 MG/2 ML VIAL ONE (12:11)
[2017-08-20] MEDS ORDERED: ceFAZolin 2 GM PREMIX 50 ML ONE (12:42)
[2017-08-20] MEDS ORDERED: TRANEXAMIC ACID INJ 1,000 MG/10 ML AMP ONE (13:00)
[2017-08-20] MEDS ORDERED: SODIUM CHLOR 0.9% 250 ML INJ 250 ML ONE (13:03)
[2017-08-20] MEDS ORDERED: VANCOMYCIN HCL 1000 MG VIAL ONE (13:03)
[2017-08-20] MEDS ORDERED: SODIUM CHLORIDE 0.9% INJ 50 ML ONE (13:08)
[2017-08-20] MEDS ORDERED: MIDAZOLAM HCL 2 MG/2 ML VIAL ONE (14:05)
[2017-08-20] MEDS ORDERED: ACETAMINOPHEN/HYDROcodone 325 MG/5 MG TAB PO PRN (14:15)
[2017-08-20] MEDS ORDERED: diphenhydrAMINE HCL 25 MG CAP PO PRN (14:15)
[2017-08-20] MEDS ORDERED: NALOXONE HCL 0.4 MG/ML AMP IV PUSH PRN (14:15)
[2017-08-20] MEDS ORDERED: MISCELLANEOUS PHARMACY INFORMATION XX ONE (14:15)
[2017-08-20] MEDS ORDERED: MISCELLANEOUS NURSING INFORMATION XX PRN (14:15)
[2017-08-20] MEDS ORDERED: SODIUM CHLORIDE 0.9% FLUSH 10 ML FLUSH IV FLUSH PRN (14:15)
[2017-08-20] MEDS ORDERED: MORPHINE SULFATE 30 MG/30 ML PCA IV SCH (14:15)
[2017-08-20] MEDS ORDERED: Post-op Orders (for Pharmacy) XX ONE (14:15)
[2017-08-20] MEDS ORDERED: ACETAMINOPHEN 325 MG TAB PO PRN (14:15)
--- NOTE | 2017-08-20 14:15 | PD.OP ---
Operative Report Date of Surgery: Aug 20, 2017 Preoperative Diagnosis: (1) Fracture of femoral neck, left Postoperative Diagnosis: (1) Fracture of femoral neck, left Procedure: Left Hip Hemiarthroplasty for Fracture Anesthesia: General Surgeon: Rick Schaefer MD Filling Station Attendant(s): Marko MARTINEZ Operation and Findings: see dictation Rick Schaefer MD Aug 20, 2017 14:15
[2017-08-20] MEDS ORDERED: DO NOT ADM ANY ANTICOAGULANT DRUGS PRN (14:30)
[2017-08-20] MEDS: D5-1/2 NS + KCL 20 MEQ INJ 1,000 ML IV SCH (14:45)
--- NOTE | 2017-08-20 15:15 | MP ---
cc: KATERIN BINGHAM M.D. DATE OF SURGERY: 08/20/2017. PREOPERATIVE DIAGNOSIS: Left hip Femoral neck fracture POSTOPERATIVE DIAGNOSIS: Same OPERATION: Left hip hemiarthroplasty SURGEON: Katerin Bingham M.D. PHYSICS AND ASTRONOMY PROFESSOR SURGEON: JUAN Cordoba. ANESTHETIC: Spinal. ESTIMATED BLOOD LOSS: 100 cc. SPECIMEN: Femoral head, discarded. COMPLICATIONS: None known. INDICATIONS FOR THE PROCEDURE: Essie Jeter is a 77-year-old female who sustained a trip and fall and fractured her left hip. She had displacement and was indicated for surgery for a hemiarthroplasty. The risks, benefits, and alternatives of treatment were thoroughly discussed. All of her questions were answered. A detailed informed consent was obtained. DESCRIPTION OF THE PROCEDURE IN DETAIL: The patient was brought into the operating room. She was placed under spinal anesthetic and turned into the lateral decubitus position. The left hip was prepped and draped in the usual sterile fashion. IV antibiotics were given. Time-out was completed. It should be noted that the nurse first assist, Marko Littlejohn is an advanced registered nurse practitioner and his skill set was medically necessary for the performance of the operation. We completed our time-out and proceeded with a posterolateral incision taking it through the subcutaneous tissue with meticulous hemostasis, down to the fascial layer which was split into the gluteus jada. The short external rotators and piriformis were taken down as a single layer with the capsule and a tag sutures were placed for later repair. The fracture site was noted with significant comminution. We proceeded to make a finishing cut on the femoral neck and then proceeded with removing the bone fragments. We sized our femoral head and then proceeded with the osteotome and the canal finder and then sequential broaching up to size 12, which had a very solid fit. We inspected the acetabulum and thoroughly irrigated and cleaned this out and then proceeded with our trial reduction, excellent range of motion and stability. These were then the final components selected impacted into place. The hip was reduced. Anatomic repair of the capsule and the piriformis. Again irrigated out with copious amounts of irrigation. Proceeded to close in layers with absorbable suture, subcuticular on the skin. Steri-Strips applied. Sterile dressing applied. The patient was awoken and returned to the recovery room in stable condition. MD MANOJ Maurice/KEISHA /2:21 PM /2:59 PM JOSE
--- NOTE | 2017-08-20 15:39 | RADRPT ---
EXAM DATE/TIME: 08/20/2017 14:43 [facility] COMPARISON: No previous studies available for comparison. INDICATIONS : Post operative hip x-ray. MEDICAL HISTORY : None. SURGICAL HISTORY : None. ENCOUNTER: Initial ACUITY: 1 day PAIN SCORE: Non-responsive. LOCATION: Left Hip. FINDINGS: A single AP view of the left hip was obtained chest the patient is status post arthroplasty. The femo ral and acetabular components are intact and in normal alignment. There is mild osteopenia. Overlying soft tissue swelling and gas is noted. CONCLUSION: Expected postoperative changes status post arthroplasty. Rajan Ortiz MD on August 20, 2017 at 15:36 Board Certified Radiologist. This report was verified electronically.
[2017-08-20] MEDS: ATORVASTATIN 40 MG TAB PO SCH (19:55)
[2017-08-20] MEDS: MELATONIN 5 MG TAB PO SCH (19:56)
[2017-08-20] MEDS: PCA - TOTAL MG MORPHINE DELIVERED PER SHIFT SCH (22:00)
[2017-08-21] VITALS (8 sets, daily range): BP systolic 138–197; BP diastolic 65–99; PULSE 83–94; RESP 16–20; TEMP 95.5–100.6; O2SAT 93–95
[2017-08-21] MEDS: D5-1/2 NS + KCL 20 MEQ INJ 1,000 ML IV SCH (00:07)
[2017-08-21] MEDS ORDERED: cloNIDine HCL 0.1 MG TAB PO ONE (01:15)
[2017-08-21] MEDS: SODIUM CHLOR 0.9% 1000 ML INJ 1,000 ML IV SCH ×2 (03:58→13:58)
[2017-08-21] MEDS: PCA - TOTAL MG MORPHINE DELIVERED PER SHIFT SCH ×4 (04:17→23:00)
[2017-08-21 07:04] LABS: AUTOMATED NEUTROPHIL # 10.3 TH/MM3 (1.8-7.7); BASOPHIL # 0.1 TH/MM3 (0-0.2); HEMATOCRIT 30.2 % (35.0-46.0); LYMPH % 1.9 % (9.0-44.0); LYMPHOCYTE # 0.2 TH/MM3 (1.0-4.8); MEAN CELL VOLUME 86.7 FL (80.0-100.0); MEAN CORPUSCULAR HEMOGLOBIN 28.7 PG (27.0-34.0); MEAN CORPUSCULAR HGB CONC 33.1 % (32.0-36.0); MEAN PLATELET VOLUME 8.3 FL (7.0-11.0); MONOCYTE # 0.7 TH/MM3 (0-0.9); NEUT % 91.1 % (16.0-70.0); PLATELET COUNT 194 TH/MM3 (150-450); RED BLOOD COUNT 3.48 MIL/MM3 (4.00-5.30); RED CELL DISTRIBUTION WIDTH 14.6 % (11.6-17.2); WHITE BLOOD COUNT 11.3 TH/MM3 (4.0-11.0)
[2017-08-21 07:20] LABS: BICARBONATE 21.9 MEQ/L (21.0-32.0); CALCIUM 7.7 MG/DL (8.5-10.1); CREATININE 1.09 MG/DL (0.50-1.00)
[2017-08-21] MEDS: DOCUSATE SODIUM 50 MG/SENNA 8.6 MG TAB PO SCH ×2 (07:31→21:00)
[2017-08-21] MEDS: MULTIVITAMINS/MINERALS THERAPEUTIC TAB PO SCH (07:32)
[2017-08-21] MEDS: METOPROLOL TARTRATE 50 MG TAB PO SCH ×2 (07:32→21:44)
[2017-08-21] MEDS: LOSARTAN 50 MG TAB PO SCH (07:32)
[2017-08-21] MEDS: NIFEdipine 60 MG SUSTAINED RELEASE TAB PO SCH ×2 (07:32→21:44)
[2017-08-21] MEDS: SODIUM CHLORIDE 0.9% FLUSH 10 ML FLUSH IV FLUSH SCH ×4 (07:33→21:43)
--- NOTE | 2017-08-21 08:07 | EKG ---
Date Performed: 08/19/2017 Time Performed: 21:28:34 PTAGE: 77 years EKG: Sinus rhythm Atrial and ventricular premature complex ST-T abnormalities resolved since the prior tracing ABNORMA L ECG PREVIOUS TRACING : 08/24/2014 02.38 DOCTOR: Jeronimo Mena Interpretating Date/Time 08/21/2017 08:05:35
[2017-08-21] MEDS: ACETAMINOPHEN/HYDROcodone 325 MG/5 MG TAB PO PRN ×2 (08:23→21:45)
[2017-08-21] MEDS ORDERED: ENALAPRILAT 1.25 MG/ML VIAL IV PUSH PRN (09:30)
[2017-08-21] MEDS: ENOXAPARIN SODIUM 40 MG/0.4 ML SYRINGE SQ SCH (13:54)
[2017-08-21] MEDS ORDERED: MAGNESIUM HYDROXIDE SUSP 30 ML CUP PO ONE (19:15)
[2017-08-21] MEDS ORDERED: DOCUSATE SODIUM 50 MG/SENNA 8.6 MG TAB PO ONE (19:15)
--- NOTE | 2017-08-21 19:15 | HHI.PR ---
Subjective Remarks Patient seen this morning around 10:30 AM. Says she is feeling all right. Denies any chest pain or shortness of breath. Objective Vital Signs Date Time Temp Pulse Resp B/P (MAP) Pulse Ox O2 Delivery O2 Flow Rate FiO2 08/21/17 16:59 93 Nasal Cannula 3.00 08/21/17 16:00 100.6 94 17 161/73 (102) 94 08/21/17 14:00 17 08/21/17 12:28 93 Nasal Cannula 3.00 08/21/17 12:00 95.5 85 19 138/65 (89) 95 08/21/17 09:24 16 08/21/17 08:00 99.2 94 20 197/71 (113) 94 08/21/17 04:17 18 08/21/17 04:00 98.6 92 16 171/79 (109) 95 08/21/17 00:00 99.3 85 18 181/78 (112) 95 08/20/17 22:00 18 08/20/17 21:01 Nasal Cannula 3.00 08/20/17 20:00 99.0 94 18 162/67 (98) 95 I/O 08/20/17 08/20/17 08/20/17 08/21/17 08/21/17 08/21/17 07:00 15:00 23:00 07:00 15:00 23:00 Intake Total 1000 ml 740 ml 240 ml Output Total 750 ml 455 ml 300 ml 250 ml Balance 250 ml 285 ml -60 ml -250 ml Intake Oral 240 ml 240 ml IV Total 1000 ml 500 ml Output Urine Total 650 ml 455 ml 300 ml 250 ml Estimated Blood Loss 100 ml # Bowel Movements 0 0 Result Diagram: 08/21/1724 08/21/1724 Objective Remarks GENERAL: patient sitting up in chair. Appears comfortable. SKIN: Warm and dry. HEAD: Normocephalic. EYES: No scleral icterus. No injection or drainage. NECK: Supple, trachea midline. No JVD. CARDIOVASCULAR: Regular rate and rhythm without murmurs, gallops, or rubs. RESPIRATORY: Breath sounds equal bilaterally. No accessory muscle use. GASTROINTESTINAL: Abdomen soft, non-tender, nondistended. MUSCULOSKELETAL: No cyanosis, or edema. BACK: Nontender without obvious deformity. No CVA tenderness. A/P Assessment and Plan //Fall: s/p mechanical fall, no LOC. CT Head/C-Spine w/ no acute findings, images reviewed by me. Ortho recommends hemiarthroplasty for fracture = Recovering from left hip arthroplasty.. Appreciate orthopedic assistance. Management as per orthopedics. //Constipation. Laxatives ordered. Await return of bowel function. //Left Hip Fx: secondary to above, X-ray w/ left femoral neck fracture, images reviewed by me. Ortho consulted by ER physician, plan for surgical intervention. NPO, advance diet to healthy heart after surgery. IVF, analgesics/antiemetics. Pre-op labs essentially unremarkable, CXR reviewed by me, no acute findings. S/P left hip arthroplasty. = Postoperative management as per surgical service. //HTN: Uncontrolled. BP 227/103, HR 86, likely compounded by pain complaints. Optimize pain control, resume home Metoprolol and Nifedipine, monitor BP, given additional labetalol and hydralazineprior to surgery, for BP >180. bP is better controlled after the surgery = Elevated blood pressures overnight. Decrease IV fluids. Start Vasotec as needed IV. // Renal Insufficiency: Acute on Chronic. Creatinine 1.16, previously 1.13 on 08/26/14. U/a negative. IVF for hydration, repeat labs in am. = Creatinine 1.1. Stable. Continue to monitor. //Postop fever 100.6 on 08/21. Will check chest x-ray due to increased oxygen requirement. Continue incentive spirometry. Add Acapella. //DVT Prophylaxis: Anticoagulation post op per Ortho Discharge Planning discharge to rehabilitation when cleared by orthopedics. Awaiting bowel movement. Gokul Llamas MD Aug 21, 2017 19:15
--- NOTE | 2017-08-21 19:32 | RADRPT ---
EXAM DATE/TIME: 08/21/2017 19:17 [facility] COMPARISON: CHEST SINGLE AP, August 19, 2017, 20:57. INDICATIONS : Increase 02 requirement MEDICAL HISTORY : Hypertension. Rheumatoid arthritis. Osteoarthritis.CKD, stage 3. Skin cancer SURGICAL HISTORY : Appendectomy. ENCOUNTER: Subsequent ACUITY: 3 days PAIN SCORE: 0/10 LOCATION: Bilateral chest FINDINGS: A single portable frontal view of the chest shows low lung volumes. The heart is normal in size. The myocardial or pericardial calcifications overlie the left heart border. Perihilar interstitial opacit ies are noted. No intra-alveolar opacities seen. No effusions. Bony structures are unremarkable. CONCLUSION: Perihilar interstitial opacities difficult to evaluate due to low lung volumes. This could relate to viral pneumonitis. I cannot completely exclude early interstitial edema. The heart is not enlarged. Ravin Burton Jr., MD on August 21, 2017 at 19:28 Board Certified Radiologist. This report was verified electronically.
--- NOTE | 2017-08-21 19:50 | PD.ORT.PN ---
Subjective Subjective Remarks Patient slightly confused. Son at bedside. Patient appears comfortable. OOB sitting in recliner. Objective Vitals Vital Signs Date Time Temp Pulse Resp B/P (MAP) Pulse Ox O2 Delivery O2 Flow Rate FiO2 08/21/17 16:59 93 Nasal Cannula 3.00 08/21/17 16:00 100.6 94 17 161/73 (102) 94 08/21/17 14:00 17 08/21/17 12:28 93 Nasal Cannula 3.00 08/21/17 12:00 95.5 85 19 138/65 (89) 95 08/21/17 09:24 16 08/21/17 08:00 99.2 94 20 197/71 (113) 94 08/21/17 04:17 18 08/21/17 04:00 98.6 92 16 171/79 (109) 95 08/21/17 00:00 99.3 85 18 181/78 (112) 95 08/20/17 22:00 18 08/20/17 21:01 Nasal Cannula 3.00 08/20/17 20:00 99.0 94 18 162/67 (98) 95 I/O 08/20/17 08/20/17 08/20/17 08/21/17 08/21/17 08/21/17 07:00 15:00 23:00 07:00 15:00 23:00 Intake Total 1000 ml 740 ml 240 ml Output Total 750 ml 455 ml 300 ml 250 ml Balance 250 ml 285 ml -60 ml -250 ml Intake Oral 240 ml 240 ml IV Total 1000 ml 500 ml Output Urine Total 650 ml 455 ml 300 ml 250 ml Estimated Blood Loss 100 ml # Bowel Movements 0 0 Result Diagram: 08/21/17 0624 08/21/17 0624 Imaging Last 24 hours Impressions Chest X-Ray 08/21/17 0000 Signed Impressions: Service Date/Time: Monday, August 21, 2017 19:17 - CONCLUSION: Perihilar interstitial opacities difficult to evaluate due to low lung volumes. This could relate to viral pneumonitis. I cannot completely exclude early interstitial edema. The heart is not enlarged. Ravin Burton Jr., MD Objective Remarks Left hip dressing C/D/I calves soft negative Juanita's distally motor, neuro and sensory intact Assessment & Plan Problem List: (1) Fracture of femoral neck, left ICD Codes: S72.002A - Fracture of unspecified part of neck of left femur, initial encounter for closed fracture Status: Acute Qualifiers: Qualified Codes: S72.002A - Fracture of unspecified part of neck of left femur, initial encounter for closed fracture Plan: Pain management DVT prophylaxis - Lovenox Physical therapy - weight bearing as tolerated Hip precautions D/C planning - anticipating rehab Orthopedically stable for discharge F/U in [address] Schaefer or JUAN in office Marko Littlejohn Aug 21, 2017 19:50
[2017-08-21] MEDS: ATORVASTATIN 40 MG TAB PO SCH (21:44)
[2017-08-21] MEDS: MELATONIN 5 MG TAB PO SCH (21:44)
[2017-08-21] MEDS: ONDANSETRON HCL 4 MG/2 ML VIAL IVP PRN (22:33)
[2017-08-22] VITALS (8 sets, daily range): BP systolic 143–182; BP diastolic 59–99; PULSE 86–95; RESP 17–19; TEMP 97.3–100.3; O2SAT 91–95
[2017-08-22] MEDS: MULTIVITAMINS/MINERALS THERAPEUTIC TAB PO SCH (08:45)
[2017-08-22] MEDS: NIFEdipine 60 MG SUSTAINED RELEASE TAB PO SCH ×2 (08:45→19:51)
[2017-08-22] MEDS: DOCUSATE SODIUM 50 MG/SENNA 8.6 MG TAB PO SCH ×2 (08:45→19:52)
[2017-08-22] MEDS: METOPROLOL TARTRATE 50 MG TAB PO SCH ×2 (08:45→19:52)
[2017-08-22] MEDS: SODIUM CHLORIDE 0.9% FLUSH 10 ML FLUSH IV FLUSH SCH ×4 (08:46→19:52)
[2017-08-22] MEDS: LOSARTAN 50 MG TAB PO SCH (08:46)
[2017-08-22] MEDS: SODIUM CHLOR 0.9% 1000 ML INJ 1,000 ML IV SCH (08:54)
[2017-08-22] MEDS ORDERED: HYDR-3516 PO (09:28)
[2017-08-22] MEDS ORDERED: FUROSEMIDE 20 MG/2 ML VIAL IV PUSH ONE (10:00)
[2017-08-22] MEDS ORDERED: DOCUSATE SODIUM 50 MG/SENNA 8.6 MG TAB PO ONE (10:00)
[2017-08-22] MEDS ORDERED: MAGNESIUM HYDROXIDE SUSP 30 ML CUP PO ONE (10:00)
[2017-08-22] MEDS ORDERED: SOD PHOSPHATE/SOD BIPHOSPHATE (ADULT) ENEMA 133ML RECTAL ONE (10:00)
[2017-08-22] MEDS ORDERED: POTASSIUM CHLORIDE 10 MEQ CONTROLLED RELEASE TAB PO ONE (10:00)
--- NOTE | 2017-08-22 12:33 | HHI.PR ---
Subjective Remarks Seen this morning. Lying down. Says she feels generally fatigued. Denies any chest pain. 9 any shortness of breath this morning, however has reported occasional shortness of breath to nursing. Jeronimo bowel movement Objective Vital Signs Date Time Temp Pulse Resp B/P (MAP) Pulse Ox O2 Delivery O2 Flow Rate FiO2 08/22/17 11:53 99.0 95 17 143/99 (114) 94 08/22/17 07:59 94 Nasal Cannula 3.00 08/22/17 07:54 100.3 92 17 170/65 (100) 94 08/22/17 05:45 98.6 91 19 182/69 (106) 94 08/22/17 01:34 97.9 86 19 151/61 (91) 95 08/21/17 21:45 Nasal Cannula 3.00 08/21/17 20:50 98.3 83 18 155/99 (117) 93 08/21/17 16:59 93 Nasal Cannula 3.00 08/21/17 16:00 100.6 94 17 161/73 (102) 94 08/21/17 14:00 17 I/O 08/21/17 08/21/17 08/21/17 08/22/17 08/22/17 08/22/17 07:00 15:00 23:00 07:00 15:00 23:00 Intake Total 240 ml 360 ml 120 ml Output Total 300 ml 250 ml 225 ml Balance -60 ml -250 ml 135 ml 120 ml Intake Oral 240 ml 360 ml 120 ml Output Urine Total 300 ml 250 ml 225 ml # Voids 0 # Bowel Movements 0 0 0 Result Diagram: 08/21/1762308/21/17623 Objective Remarks GENERAL: patient lying in bed. Appears comfortable. SKIN: Warm and dry. HEAD: Normocephalic. EYES: No scleral icterus. No injection or drainage. NECK: Supple, trachea midline. No JVD. CARDIOVASCULAR: Regular rate and rhythm without murmurs, gallops, or rubs. RESPIRATORY: Breath sounds equal bilaterally. No accessory muscle use. Crackles bilaterally.. GASTROINTESTINAL: Abdomen soft, non-tender, nondistended. MUSCULOSKELETAL: No cyanosis. Trace edema. BACK: Nontender without obvious deformity. No CVA tenderness. A/P Assessment and Plan //Fall: s/p mechanical fall, no LOC. CT Head/C-Spine w/ no acute findings, images reviewed by me. Ortho recommends hemiarthroplasty for fracture = Recovering from left hip arthroplasty.. Appreciate orthopedic assistance. Management as per orthopedics. Discharge to rehabilitation. //Constipation. Laxatives ordered. Await return of bowel function. = 08/22. Order enema. //Left Hip Fx: secondary to above, X-ray w/ left femoral neck fracture, images reviewed by me. Ortho consulted by ER physician, plan for surgical intervention. NPO, advance diet to healthy heart after surgery. IVF, analgesics/antiemetics. Pre-op labs essentially unremarkable, CXR reviewed by me, no acute findings. S/P left hip arthroplasty. = Postoperative management as per surgical service. Discharge to rehabilitation. //Fluid overload/CHF exacerbation. -Likely secondary to IV fluids which were continued due to poor by mouth intake. We'll discontinue IV fluids. BNP elevated at 701. On fluid restrictions, strict intake and output monitoring. Single dose of Lasix 40 mg IV given. Cardiac exam ordered and pending. Need to monitor fluid status. //HTN: Uncontrolled. BP 227/103, HR 86, likely compounded by pain complaints. Optimize pain control, resume home Metoprolol and Nifedipine, monitor BP, given additional labetalol and hydralazineprior to surgery, for BP >180. bP is better controlled after the surgery = Elevated blood pressures overnight. Decrease IV fluids. Start Vasotec as needed IV. = Pressure acceptable. Stop IV fluids. // Renal Insufficiency: Acute on Chronic. Creatinine 1.16, previously 1.13 on 08/26/14. U/a negative. IVF for hydration, repeat labs in am. = Creatinine 1.1. Stable. Continue to monitor. //Postop fever 100.6 on 08/21. Will check chest x-ray due to increased oxygen requirement. Continue incentive spirometry. Add Acapella. = Disease with low grade fevers. No signs of infection. Chest x-ray ordered this morning with what appears to be pulmonary edema. //DVT Prophylaxis: Anticoagulation post op per Ortho Discharge Planning [place] today due to fluid overload. Plan discharge to rehabilitation [place]. Awaiting bowel movement. Gokul Llamas MD Aug 22, 2017 12:33
[2017-08-22] MEDS: ACETAMINOPHEN/HYDROcodone 325 MG/5 MG TAB PO PRN ×2 (13:23→17:43)
[2017-08-22] MEDS: ENOXAPARIN SODIUM 40 MG/0.4 ML SYRINGE SQ SCH (13:24)
[2017-08-22] MEDS: PCA - TOTAL MG MORPHINE DELIVERED PER SHIFT SCH ×3 (14:00→19:47)
--- NOTE | 2017-08-22 18:20 | PD.ORT.PN ---
Subjective Subjective Remarks Patient comfortable sitting in chair Patient son at bedside Objective Vitals Vital Signs Date Time Temp Pulse Resp B/P (MAP) Pulse Ox O2 Delivery O2 Flow Rate FiO2 08/22/17 16:25 91 Nasal Cannula 3.00 08/22/17 16:00 99.1 87 17 154/63 (93) 91 08/22/17 14:23 18 08/22/17 11:53 99.0 95 17 143/99 (114) 94 08/22/17 07:59 94 Nasal Cannula 3.00 08/22/17 07:54 100.3 92 17 170/65 (100) 94 08/22/17 05:45 98.6 91 19 182/69 (106) 94 08/22/17 01:34 97.9 86 19 151/61 (91) 95 08/21/17 21:45 Nasal Cannula 3.00 08/21/17 20:50 98.3 83 18 155/99 (117) 93 I/O 08/21/17 08/21/17 08/21/17 08/22/17 08/22/17 08/22/17 07:00 15:00 23:00 07:00 15:00 23:00 Intake Total 240 ml 360 ml 120 ml 480 ml Output Total 300 ml 250 ml 225 ml 1425 ml Balance -60 ml -250 ml 135 ml 120 ml -945 ml Intake Oral 240 ml 360 ml 120 ml 480 ml Output Urine Total 300 ml 250 ml 225 ml 1425 ml # Voids 0 # Bowel Movements 0 0 0 2 Result Diagram: 08/21/17 0624 08/21/17 0624 Imaging Last 24 hours Impressions Chest X-Ray 08/21/17 0000 Signed Impressions: Service Date/Time: Monday, August 21, 2017 19:17 - CONCLUSION: Perihilar interstitial opacities difficult to evaluate due to low lung volumes. This could relate to viral pneumonitis. I cannot completely exclude early interstitial edema. The heart is not enlarged. Ravin Burton Jr., MD Objective Remarks Left hip dressing C/D/I calves soft negative Juanita's distally motor, neuro and sensory intact Assessment & Plan Problem List: (1) Fracture of femoral neck, left ICD Codes: S72.002A - Fracture of unspecified part of neck of left femur, initial encounter for closed fracture Status: Acute Qualifiers: Qualified Codes: S72.002A - Fracture of unspecified part of neck of left femur, initial encounter for closed fracture Plan: Postop day #3 status post left hip hemiarthroplasty for fracture Pain management DVT prophylaxis - Lovenox Physical therapy - weight bearing as tolerated Hip precautions D/C planning - anticipating rehab Orthopedically stable for discharge F/U in [address] Schaefer or JUAN in office Rick Schaefer MD Aug 22, 2017 18:20
--- NOTE | 2017-08-22 19:34 | ECHRPT ---
Indication: heart failure CONCLUSIONS Normal left ventricular size. The left ventricular systolic function is low normal with an estimated ejection fraction in the rang e of 50- 55%. Trace mitral valve regurgitation. Aortic valve sclerosis is present. There is mild tricuspid valve regurgitation. Mitral anular calcification. The estimated pulmonary arterial pressure is 50 mmHg. BP: / HR: Rhythm: MEASUREMENTS (Male / Female) Normal Values Technical Quality:Good 2D ECHO LV Diastolic Diameter PLAX 3.8 cm 4.2 - 5.9 / 3.9 - 5.3 cm LV Systolic Diameter PLAX 3.0 cm IVS Diastolic Thickness 2.0 cm 0.6 - 1.0 / 0.6 - 0.9 cm LVPW Diastolic Thickness 0.8 cm 0.6 - 1.0 / 0.6 - 0.9 cm LV Relative Wall Thickness 0.7 RV Internal Dim ED PLAX 1.8 cm M-MODE Aortic Root Diameter MM 2.9 cm LA Systolic Diameter MM 2.9 cm LA Ao Ratio MM 1.0 AV Cusp Separation MM 1.9 cm DOPPLER MV Area PHT 2.1 cm Mitral E Point Velocity 68.6 cm/s Mitral A Point Velocity 109.0 cm/s Mitral E to A Ratio 0.6 LV E' Lateral Velocity 6.1 cm/s Mitral E to LV E' Lateral Ratio 11.2 LV E' Septal Velocity 6.2 cm/s Mitral E to LV E' Septal Ratio 11.0 TR Peak Velocity 316.0 cm/s TR Peak Gradient 39.9 mmHg Right Atrial Pressure 10.0 mmHg Pulmonary Artery Systolic Pressu 49.9 mmHg Right Ventricular Systolic Press 49.9 mmHg FINDINGS LEFT VENTRICLE Normal left ventricular size. The left ventricular systolic function is low normal with an estimated ejection fraction in the rang e of 50- 55%. RIGHT VENTRICLE Normal right ventricular size and systolic function. LEFT ATRIUM The left atrial size is normal. RIGHT ATRIUM The right atrial size is normal. ATRIAL SEPTUM Normal atrial septal thickness without atrial level shunting by limited color doppler interrogation. AORTA The aortic root and proximal ascending aorta are normal in size on limited imaging. MITRAL VALVE Structurally normal mitral valve. Trace mitral valve regurgitation. AORTIC VALVE Trileaflet aortic valve. Aortic valve sclerosis is present. No aortic valve regurgitation. TRICUSPID VALVE Structurally normal tricuspid valve. There is mild tricuspid valve regurgitation. The estimated pulmonary arterial pressure is 49.9 mmHg. PULMONARY VALVE No pulmonary valve regurgitation or stenosis. VESSELS The inferior vena cava is normal in size. PERICARDIUM No pericardial effusion. Abelino Hale MD, FACC (Electronically Signed) Final Date:22 August 2017 19:34
[2017-08-22] MEDS: MELATONIN 5 MG TAB PO SCH (19:51)
[2017-08-22] MEDS: ATORVASTATIN 40 MG TAB PO SCH (19:52)
[2017-08-22] MEDS ORDERED: DOCUSATE SODIUM 50 MG/SENNA 8.6 MG TAB PO SCH (21:00)
[2017-08-23 00:20] VITALS: BP 174/62; PULSE 94; RESP 19; TEMP 99.5; O2SAT 94
[2017-08-23 04:35] VITALS: BP 182/73; PULSE 93; RESP 19; TEMP 99; O2SAT 94
[2017-08-23] MEDS: ACETAMINOPHEN/HYDROcodone 325 MG/5 MG TAB PO PRN ×2 (05:20→10:00)
[2017-08-23 08:00] VITALS: BP 166/69; PULSE 84; RESP 17; TEMP 97.3; O2SAT 94
[2017-08-23] MEDS: SODIUM CHLORIDE 0.9% FLUSH 10 ML FLUSH IV FLUSH SCH ×2 (08:27→08:33)
[2017-08-23] MEDS: METOPROLOL TARTRATE 50 MG TAB PO SCH (08:30)
[2017-08-23] MEDS: NIFEdipine 60 MG SUSTAINED RELEASE TAB PO SCH (08:30)
[2017-08-23] MEDS: LOSARTAN 50 MG TAB PO SCH (08:30)
[2017-08-23] MEDS: DOCUSATE SODIUM 50 MG/SENNA 8.6 MG TAB PO SCH (08:30)
[2017-08-23] MEDS: MULTIVITAMINS/MINERALS THERAPEUTIC TAB PO SCH (08:31)
[2017-08-23] MEDS: PCA - TOTAL MG MORPHINE DELIVERED PER SHIFT SCH (09:10)
[2017-08-23] MEDS ORDERED: hydrALAZINE HCL 50 MG TAB PO ONE (09:30)
[2017-08-23 09:40] LABS: AUTOMATED NEUTROPHIL # 8.3 TH/MM3 (1.8-7.7); BASOPHIL # 0.1 TH/MM3 (0-0.2); BASOPHIL % 0.7 % (0.0-2.0); EOSINOPHIL % 0.2 % (0.0-4.0); HEMATOCRIT 30.2 % (35.0-46.0); HEMOGLOBIN 10.3 GM/DL (11.6-15.3); LYMPH % 6.9 % (9.0-44.0); LYMPHOCYTE # 0.7 TH/MM3 (1.0-4.8); MEAN CELL VOLUME 85.7 FL (80.0-100.0); MEAN CORPUSCULAR HEMOGLOBIN 29.2 PG (27.0-34.0); MEAN CORPUSCULAR HGB CONC 34.1 % (32.0-36.0); MONO % 8.4 % (0.0-8.0); MONOCYTE # 0.8 TH/MM3 (0-0.9); NEUT % 83.8 % (16.0-70.0); PLATELET COUNT 205 TH/MM3 (150-450); RED BLOOD COUNT 3.52 MIL/MM3 (4.00-5.30); RED CELL DISTRIBUTION WIDTH 14.5 % (11.6-17.2); WHITE BLOOD COUNT 9.9 TH/MM3 (4.0-11.0)
--- NOTE | 2017-08-23 09:52 | RADRPT ---
EXAM DATE/TIME: 08/23/2017 09:26 [facility] COMPARISON: CHEST SINGLE AP, August 21, 2017, 19:17. INDICATIONS : Congestive heart failure. MEDICAL HISTORY : Hypertension. Renal disease, end stage. Rheumatoid arthritis.Spinal stenosis. SURGICAL HISTORY : Appendectomy. ENCOUNTER: Subsequent ACUITY: 4 - 6 days PAIN SCORE: 0/10 LOCATION: Bilateral chest FINDINGS: A single view of the chest demonstrates the lungs to be symmetrically aerated without evidence of mas s, infiltrate or effusion. The cardiomediastinal contours are unremarkable. Osseous structures are intact. CONCLUSION: Normal examination except for mild pulmonary vascular prominence. Luigi Dupont MD on August 23, 2017 at 9:48 Board Certified Radiologist. This report was verified electronically.
[2017-08-23] MEDS ORDERED: HYDROCHLOROTHIAZIDE 12.5 MG CAP PO ONE (10:00)
[2017-08-23 10:08] LABS: ALBUMIN 2.3 GM/DL (3.4-5.0); BICARBONATE 27.5 MEQ/L (21.0-32.0); CALCIUM 8.1 MG/DL (8.5-10.1); CREATININE 0.83 MG/DL (0.50-1.00); PHOSPHORUS 1.6 MG/DL (2.5-4.9)
[2017-08-23] MEDS ORDERED: HYDR12.57 PO (10:17)
[2017-08-23] MEDS ORDERED: HYDR-3800 PO (10:17)
[2017-08-23 10:20] LABS: BANDS 12 % (0-6); BASOPHILS 2 % (0-2); LYMPHOCYTES 7 % (9-44); MONOCYTES 5 % (0-8); NEUTROPHIL # MANUAL DIFF 8.5 TH/MM3 (1.8-7.7); POLYS (SEG NEUTROPHILS) 74 % (16-70)
[2017-08-23 10:21] LABS: OVALOCYTES 1+ (NORMAL)
[2017-08-23] MEDS ORDERED: POTA10CA PO (10:22)
--- NOTE | 2017-08-23 10:27 | HHI.PR ---
Subjective Remarks Says she is feeling well. Denies any chest pain or shortness of breath. Says she feels much better than yesterday. positive bowel movement. Objective Vital Signs Date Time Temp Pulse Resp B/P (MAP) Pulse Ox O2 Delivery O2 Flow Rate FiO2 08/23/17 09:02 Nasal Cannula 3.00 08/23/17 08:00 97.3 84 17 166/69 (101) 94 08/23/17 04:35 99.0 93 19 182/73 (109) 94 08/23/17 00:20 99.5 94 19 174/62 (99) 94 08/22/17 20:00 Nasal Cannula 3.00 08/22/17 20:00 97.3 94 18 157/59 (91) 94 08/22/17 16:25 91 Nasal Cannula 3.00 08/22/17 16:00 99.1 87 17 154/63 (93) 91 08/22/17 14:23 18 08/22/17 11:53 99.0 95 17 143/99 (114) 94 I/O 08/22/17 08/22/17 08/22/17 08/23/17 08/23/17 08/23/17 07:00 15:00 23:00 07:00 15:00 23:00 Intake Total 120 ml 480 ml 240 ml 120 ml Output Total 1425 ml 750 ml 400 ml Balance 120 ml -945 ml -510 ml -280 ml Intake Oral 120 ml 480 ml 240 ml 120 ml Output Urine Total 1425 ml 750 ml 400 ml # Voids 0 # Bowel Movements 0 2 3 0 Result Diagram: 08/23/1790408/23/17904 Objective Remarks GENERAL: patient lying in bed. Appears comfortable. SKIN: Warm and dry. HEAD: Normocephalic. EYES: No scleral icterus. No injection or drainage. NECK: Supple, trachea midline. No JVD. CARDIOVASCULAR: Regular rate and rhythm without murmurs, gallops, or rubs. RESPIRATORY: Breath sounds equal bilaterally. No accessory muscle use. No crackles today. GASTROINTESTINAL: Abdomen soft, non-tender, nondistended. MUSCULOSKELETAL: No cyanosis. Trace edema. BACK: Nontender without obvious deformity. No CVA tenderness. A/P Assessment and Plan //Fall: s/p mechanical fall, no LOC. CT Head/C-Spine w/ no acute findings, images reviewed by me. Ortho recommends hemiarthroplasty for fracture = Recovering from left hip arthroplasty.. Appreciate orthopedic assistance. Management as per orthopedics. Discharge to rehabilitation. //Constipation. Laxatives ordered. Await return of bowel function. = 08/22. Order enema. = Resolved. //Left Hip Fx: secondary to above, X-ray w/ left femoral neck fracture, images reviewed by me. Ortho consulted by ER physician, plan for surgical intervention. NPO, advance diet to healthy heart after surgery. IVF, analgesics/antiemetics. Pre-op labs essentially unremarkable, CXR reviewed by me, no acute findings. S/P left hip arthroplasty. = Postoperative management as per surgical service. Discharge to rehabilitation. //Fluid overload/CHF exacerbation. //Also is suspected pulmonary hypertension -Likely secondary to IV fluids which were continued due to poor by mouth intake. We'll discontinue IV fluids. BNP elevated at 701. On fluid restrictions, strict intake and output monitoring. Single dose of Lasix 40 mg IV given. Cardiac exam ordered and pending. Need to monitor fluid status. = 08/23. Echocardiogram reviewed with EF 50%. Elevated pulmonary pressures at 60 mmHg. Adjust blood pressure medications for afterload reduction. Repeat chest x-ray improved. Add hydralazine. Add hydrochlorothiazide. //Hypokalemia. Potassium 2.9. Likely secondary to diuresis. We will start on daily replacement at discharge. Will need follow-up of potassium at receiving facility. //Hypophosphatemia. 1.6. Likely secondary to poor by mouth intake over the time of surgery. Expect to improve. Replaced today. //HTN: Uncontrolled. BP 227/103, HR 86, likely compounded by pain complaints. Optimize pain control, resume home Metoprolol and Nifedipine, monitor BP, given additional labetalol and hydralazineprior to surgery, for BP >180. bP is better controlled after the surgery = Elevated blood pressures overnight. Decrease IV fluids. Start Vasotec as needed IV. = Pressure acceptable. Stop IV fluids. // Renal Insufficiency: Acute on Chronic. Creatinine 1.16, previously 1.13 on 08/26/14. U/a negative. IVF for hydration, repeat labs in am. = Creatinine 1.1. Stable. Continue to monitor. //Postop fever 100.6 on 08/21. Will check chest x-ray due to increased oxygen requirement. Continue incentive spirometry. Add Acapella. = Disease with low grade fevers. No signs of infection. Chest x-ray ordered this morning with what appears to be pulmonary edema. = No signs of infection. //DVT Prophylaxis: Anticoagulation post op per Ortho Discharge Planning To rehabilitation today. Continue on restrictions, just his blood pressure medication regimen. Gokul Llamas MD Aug 23, 2017 10:27
[2017-08-23] MEDS ORDERED: POTASSIUM CHLORIDE 10 MEQ CONTROLLED RELEASE TAB PO ONE (10:30)
--- NOTE | 2017-08-23 10:30 | HHI.DS ---
Discharge Summary Admission Date Aug 19, 2017 at 22:05 Discharge Date: Aug 23, 2017 Admitting Diagnosis Left femoral neck fracture (1) Fall ICD Code: W19.XXXA - Unspecified fall, initial encounter (2) Fracture of femoral neck, left ICD Code: S72.002A - Fracture of unspecified part of neck of left femur, initial encounter for closed fracture Status: Acute (3) Renal insufficiency ICD Code: N28.9 - Disorder of kidney and ureter, unspecified (4) HTN (hypertension) ICD Code: I10 - Essential (primary) hypertension Procedures Left hip arthroplasty. Brief History - From Admission This is a 77-year-old female with a PMH of HTN, Hyperlipidemia, Vertigo, Chronic Back Pain and Arthritis who is brought to the ER by EMS secondary to fall with complaints of left hip pain. Per pt she had picked up her dog and went to put it down when she lost her balance, fell onto left hip w/ immediate pain. No LOC. Pain is constant, severe, 10/10, non-radiating, worse w/ movement. BP 227/99, HR 86, O2 sat 92% on RA, Afebrile. CBC unremarkable. Creatinine 1.16, producing 1.13 on 08/26/14. INR 0.9. UA negative. CXR with no acute findings. Hip X-ray with acute left femoral neck fracture with inferomedial angulation deformity. CT Abdomen no acute findings. Ortho consulted by ER physician, plan is for surgical intervention. CBC/BMP: 08/23/17 0905 08/23/17 0905 Significant Findings Laboratory Tests Test 08/21/17 06:24 08/22/17 11:20 08/23/17 09:05 White Blood Count 11.3 TH/MM3 (4.0-11.0) Red Blood Count 3.48 MIL/MM3 (4.00-5.30) 3.52 MIL/MM3 (4.00-5.30) Hemoglobin 10.0 GM/DL (11.6-15.3) 10.3 GM/DL (11.6-15.3) Hematocrit 30.2 % (35.0-46.0) 30.2 % (35.0-46.0) Neutrophils (%) (Auto) 91.1 % (16.0-70.0) 83.8 % (16.0-70.0) Lymphocytes (%) (Auto) 1.9 % (9.0-44.0) 6.9 % (9.0-44.0) Neutrophils # (Auto) 10.3 TH/MM3 (1.8-7.7) 8.3 TH/MM3 (1.8-7.7) Lymphocytes # (Auto) 0.2 TH/MM3 (1.0-4.8) 0.7 TH/MM3 (1.0-4.8) Creatinine 1.09 MG/DL (0.50-1.00) Random Glucose 128 MG/DL (74-106) Calcium Level 7.7 MG/DL (8.5-10.1) 8.1 MG/DL (8.5-10.1) Estimat Glomerular Filtration Rate 49 ML/MIN (>89) 67 ML/MIN (>89) B-Type Natriuretic Peptide 701 PG/ML (0-100) Monocytes (%) (Auto) 8.4 % (0.0-8.0) Neutrophils % (Manual) 74 % (16-70) Band Neutrophils % 12 % (0-6) Lymphocytes % 7 % (9-44) Neutrophils # (Manual) 8.5 TH/MM3 (1.8-7.7) Ovalocytes 1+ (NORMAL) Albumin 2.3 GM/DL (3.4-5.0) Phosphorus Level 1.6 MG/DL (2.5-4.9) Sodium Level 134 MEQ/L (136-145) Potassium Level 2.9 MEQ/L (3.5-5.1) Imaging Last Impressions Chest X-Ray 08/23/17 0000 Signed Impressions: Service Date/Time: Wednesday, August 23, 2017 09:26 - CONCLUSION: Normal examination except for mild pulmonary vascular prominence. Luigi Dupont MD Hip X-Ray 08/20/17 0000 Signed Impressions: Service Date/Time: Sunday, August 20, 2017 14:43 - CONCLUSION: Expected postoperative changes status post arthroplasty. Rajan Ortiz MD Hip and Pelvis X-Ray 08/19/[id number] Signed Impressions: Service Date/Time: Saturday, August 19, 2017 20:53 - CONCLUSION: Acute left femoral neck fracture with inferomedial angulation deformity. Lexa Wilcox MD Head CT 08/19/17 0000 Signed Impressions: Service Date/Time: Saturday, August 19, 2017 21:02 - CONCLUSION: No acute intracranial abnormality. Lexa Wilcox MD PE at Discharge GENERAL: Pleasant elderly white female in nad. HEENT: PERRLA, EOMI. No scleral icterus or conjunctival pallor. No lid lag or facial droop. CARDIOVASCULAR: Regular rate and rhythm. No obvious murmurs to auscultation. No chest tenderness to palpation. RESPIRATORY: No obvious rhonchi or wheezing. Clear to auscultation. Breath sounds equal bilaterally. GASTROINTESTINAL: Abdomen soft, non-tender, nondistended. BS normal. MUSCULOSKELETAL: Extremities without clubbing, cyanosis, or edema. No obvious deformities. S/p surgery left hip. Pulses intact. NEUROLOGICAL: Awake, alert and oriented x4. No focal neurologic deficits. Moving both upper and lower extremities spontaneously. Hospital Course Patient was admitted secondary to mechanical fall. CT head, CT spine with no acute findings. Patient to have left hip fracture on imaging as above. She underwent left hip arthroplasty. Patient recovering as expected from left hip arthroplasty, however hospitalization complicated by fluid overload, chest x- ray with pulmonary edema, increased oxygen requirements up to 3 L nasal cannula. This resolved with diuresis and fluid restrictions. Echocardiogram with EF 50%, mild mitral regurgitation, elevated pulmonary pressures of 60 mmHg. Blood pressure medications were adjusted for afterload reduction, and she will need to continue on fluid restrictions. Patient was also treated for hypokalemia, hypophosphatemia which will need to be monitored at receiving facility. For problem-based summary from most recent progress note, please see below. //Fall: s/p mechanical fall, no LOC. CT Head/C-Spine w/ no acute findings, images reviewed by me. Ortho recommends hemiarthroplasty for fracture = Recovering from left hip arthroplasty.. Appreciate orthopedic assistance. Management as per orthopedics. Discharge to rehabilitation. //Constipation. Laxatives ordered. Await return of bowel function. = 08/22. Order enema. = Resolved. //Left Hip Fx: secondary to above, X-ray w/ left femoral neck fracture, images reviewed by me. Ortho consulted by ER physician, plan for surgical intervention. NPO, advance diet to healthy heart after surgery. IVF, analgesics/antiemetics. Pre-op labs essentially unremarkable, CXR reviewed by me, no acute findings. S/P left hip arthroplasty. = Postoperative management as per surgical service. Discharge to rehabilitation. //Fluid overload/CHF exacerbation. //Also is suspected pulmonary hypertension -Likely secondary to IV fluids which were continued due to poor by mouth intake. We'll discontinue IV fluids. BNP elevated at 701. On fluid restrictions, strict intake and output monitoring. Single dose of Lasix 40 mg IV given. Cardiac exam ordered and pending. Need to monitor fluid status. = 08/23. Echocardiogram reviewed with EF 50%. Elevated pulmonary pressures at 60 mmHg. Adjust blood pressure medications for afterload reduction. Repeat chest x-ray improved. Add hydralazine. Add hydrochlorothiazide. //Hypokalemia. Potassium 2.9. Likely secondary to diuresis. We will start on daily replacement at discharge. Will need follow-up of potassium at receiving facility. //Hypophosphatemia. 1.6. Likely secondary to poor by mouth intake over the time of surgery. Expect to improve. Replaced today. //HTN: Uncontrolled. BP 227/103, HR 86, likely compounded by pain complaints. Optimize pain control, resume home Metoprolol and Nifedipine, monitor BP, given additional labetalol and hydralazineprior to surgery, for BP >180. bP is better controlled after the surgery = Elevated blood pressures overnight. Decrease IV fluids. Start Vasotec as needed IV. = Pressure acceptable. Stop IV fluids. // Renal Insufficiency: Acute on Chronic. Creatinine 1.16, previously 1.13 on 08/26/14. U/a negative. IVF for hydration, repeat labs in am. = Creatinine 1.1. Stable. Continue to monitor. //Postop fever 100.6 on 08/21. Will check chest x-ray due to increased oxygen requirement. Continue incentive spirometry. Add Acapella. = Disease with low grade fevers. No signs of infection. Chest x-ray ordered this morning with what appears to be pulmonary edema. = No signs of infection. //DVT Prophylaxis: Anticoagulation post op per Ortho Pt Condition on Discharge: Good Discharge Disposition: Rehab Inpatient Discharge Time: > 30 minutes Discharge Instructions DIET: Follow Instructions for: Heart Healthy Diet Fluid Restrictions: 1800ml Activities you can perform: Weight Bearing as Letty Follow up Referrals: Cardiology - 1 Week Orthopedics - 2 Weeks @ [facility] with Rick Schaefer MD New Medications: Hydralazine HCl (Hydralazine HCl) 50 Mg Tablet 50 MG PO Q8HR for Blood Pressure Management for 30 Days, TAB Hydrochlorothiazide (Hydrochlorothiazide) 12.5 Mg Cap 12.5 MG PO DAILY for Blood Pressure Management for 30 Days, #30 CAP Hydrocodone/Acetaminophen (Hydrocodone-Acetamin 5-325 mg) 5 Mg-325 Mg Tablet 1 TAB PO Q4H PRN for PAIN SCALE 1 TO 10 for 7 Days, #42 TAB Changed Medications: Potassium Chloride ER (Potassium Chloride ER) 10 Meq Cap 30 MEQ PO DAILY for Electrolyte Replacement for 30 Days, #90 CAP 0 Refills ( Changed from: 10 MEQ; BID; 60) Continued Medications: Aspirin (Aspirin) 81 Mg Chew 81 MG CHEW DAILY, TAB 0 Refills Atorvastatin (Atorvastatin) 40 Mg Tab 40 MG PO HS for Cholesterol Management, #30 TAB 0 Refills Calcium Carbonate (Antacid) (Tums) 500 Mg Chew 500 MG CHEW PRN for HEARTBURN, TAB 0 Refills Cholecalciferol (Vitamin D3) 1,000 Unit Cap 1000 UNITS PO DAILY for Nutritional Supplement, #1 BOTTLE 0 Refills Leflunomide (Arava) 10 Mg Tab 10 MG PO 3xweek, TAB Losartan (Losartan) 50 Mg Tab 50 MG PO DAILY for Blood Pressure Management, #90 TAB 1 Refill Meclizine (Meclizine) 25 Mg Tab 25 MG PO TID PRN for VERTIGO, TAB 0 Refills Melatonin (Melatonin) 5 Mg Tab 5 MG PO HS for Provide Good Sleep, TAB 0 Refills Metoprolol Tartrate (Metoprolol Tartrate) 50 Mg Tab 50 MG PO BID, #60 TAB 0 Refills Nifedipine ER 24 HR (Nifedipine ER 24 HR) 60 Mg Tab 60 MG PO BID, #30 TAB 0 Refills Prednisone (Prednisone) 1 Mg Tab 4 MG PO DAILY, TAB 0 Refills Discontinued Medications: Diclofenac Sodium (Voltaren) 1 % Gel..gram. Hydrocodone-Acetaminophen (Hydrocodone-Acetaminophen) 5-325 mg Tab 1 TAB PO Q6H PRN for PAIN, TAB 0 Refills Llamas,Gokul D MD Aug 23, 2017 10:30
[2017-08-23 10:49] VITALS: O2SAT 94
[2017-08-23 11:04] VITALS: RESP 18
[2017-08-23] MEDS ORDERED: POTASSIUM PHOSPHATE INJ 15 MMOL in SODIUM CHLORIDE 0.9% INJ 150 ML IV ONE (12:00)
[2017-08-23] MEDS ORDERED: hydrALAZINE HCL 50 MG TAB PO SCH (14:00)
[2017-08-24] MEDS ORDERED: HYDROCHLOROTHIAZIDE 12.5 MG CAP PO SCH (09:00)
[2017-08-24] MEDS ORDERED: predniSONE 1 MG TAB PO SCH (09:00)
== END 2017-08-23 11:52 | DRG 470 ==
LOC: NEPC 20:11 → NEDA 22:05 → N06A 08-20 16:36
PROVIDERS: ADMIT Internal Medicine; ATTEND Internal Medicine
PROC: 0SRS0JZ Replacement of Left Hip Joint, Femoral Surface with Synthetic Substitute, Open Approach (ICD-10-PCS; principal; 2017-08-20 12:02)
DX: S72.002A Fracture of unspecified part of neck of left femur, initial encounter for closed fracture (principal); I27.20 Pulmonary hypertension, unspecified; I13.0 Hypertensive heart and chronic kidney disease with heart failure and stage 1 through stage 4 chronic kidney disease, or unspecified chronic kidney disease; I50.9 Heart failure, unspecified; E83.39 Other disorders of phosphorus metabolism; M06.9 Rheumatoid arthritis, unspecified; R50.82 Postprocedural fever; N18.9 Chronic kidney disease, unspecified; E78.5 Hyperlipidemia, unspecified; K59.00 Constipation, unspecified; E87.6 Hypokalemia; I34.0 Nonrheumatic mitral (valve) insufficiency; T50.2X5A Adverse effect of carbonic-anhydrase inhibitors, benzothiadiazides and other diuretics, initial encounter; M48.00 Spinal stenosis, site unspecified; H91.92 Unspecified hearing loss, left ear; W01.0XXA Fall on same level from slipping, tripping and stumbling without subsequent striking against object, initial encounter; Z85.828 Personal history of other malignant neoplasm of skin; Z87.891 Personal history of nicotine dependence; Z88.0 Allergy status to penicillin; Z88.2 Allergy status to sulfonamides
CPT/HCPCS: 70450; 71045; 73501; 73502; 80048; 80053; 80069; 81001; 82948; 83735; 83880; 85007; 85025; 85027; 85610; 85730; 86850; 86900; 86901; 93005; 93306; 94150; 94667; 94668; C1776; J0360; J0690; J1580; J1650; J1940; J2250; J2270; J2370; J2405; J3370; J3480; J7030; J7050; L1830

== ENCOUNTER → 2017-09-15 | Outpatient (CLI) | payer MEDICARE, OTHER ==
[~2017-09-15] MED LIST changes: +ACET325T15 PO; +ASPI81 CHEW; +CHLORHEXIDINE GLUCONATE 2 % 1 PACK (2 CLOTHS) TOPICAL PRN; +CHOL1000 PO; +CHOL4POW2 PO; +CIPR-9 PO; +CLON.1 PO; +ECASA81 PO; +GETGO ROLLING W1 MI1; +HYDR-3799 PO; +HYDR-3800 PO; +HYDR12.57 PO; +LACTATED RINGER'S 1000 ML IV PRN; +LIDOCAINE HCL 1% PF 5 ML SYRINGE OTHER ONE; +METO-338 PO; +METOPROLOL TARTRATE 25 MG TAB PO PRN; +MIRTA15 PO; +Megestrol Liq PO; +NIFE60TA8 PO; +Nystatin Liq SWISH-SWAL; +ONDA4TAB7 PO; +PANT40TA3 PO; +PARO20TA2 PO; +POVIDONE IODINE 5% (ANTISEPSIS KIT) 4 APPLICATIONS EACH NARE PRN; +PRED1 PO; +PRED5TAB PO; +PROPOFOL 200 MG/20 ML AMP IV ONE; +SODI1TAB PO; +SODIUM CHLORID 0.9% 500 ML IV PRN; -TUMS500C CHEW; +ePHEDrine/NS 25 MG/5 ML SYRINGE IV ONE
--- NOTE | 2017-09-15 15:15 | GIPROC ---
[facility] [address] [facility]. [facility], [address] EGD PROCEDURE REPORT EXAM DATE: 09/15/2017 PATIENT NAME: Essie Jeter MR #: [id number] BIRTHDATE: 1940 ATTENDING: Brea Buckley MD ORDER #: [id number] PANTRY CHEF: Minerva Johnson Wilcox-Hassen, Alice and Anjali Arriaga STATUS: outpatient INDICATIONS: The patient is a 77 yr old female here for an EGD due to poor appetite PROCEDURE PERFORMED: EGD w/ biopsy MEDICATIONS: None and Per Anesthesia. TOPICAL ANESTHETIC: none CONSENT: The patient understands the risks and benefits of the procedure and understands that these risks include, but are not limited to: sedation, allergic reaction, infection, perforation and/or bleeding. Alternative means of evaluation and treatment include, among others: physical exam, x-rays, and/or surgical intervention. The patient elects to proceed with this endoscopic procedure. medical equipment was checked for proper function. Hand hygiene and appropriate measures for infection prevention was taken. After the risks, benefits and alternatives of the procedure were thoroughly explained, Informed consent was verified, confirmed and timeout was successfully executed by the treatment team. The patient was anesthetized with topical anesthesia and the Pentax [id number] endoscope was introduced through the mouth and advanced to the second portion of the duodenum. Retroflexed views revealed a hiatal hernia The gastroscope was then slowly withdrawn and removed. Gastritis antrum-biopsy duodenum normal-biopsy white plaques in esophagus-oliver -biopsy. ADVERSE EVENTS: There were no complications. IMPRESSIONS: 1. Gastritis antrum-biopsy duodenum normal-biopsy white plaques in esophagus-oliver -biopsy 2. Retroflexed views revealed a hiatal hernia RECOMMENDATIONS: 1. Await biopsy results. Biopsy results will not be ready for 7-10 days. If you don't hear from us in two weeks, call our office for biopsy results. 2. Anti-reflux regimen 3. Start PPI 4. Nystatin PATIENT CONDITION: stable DISPOSITION: return to rehab facility REPEAT EXAM: Return 1 year EGD Brea Buckley MD eSigned: Brea Buckley MD 09/15/2017 3:15 PM cc: PATIENT NAME: Essie Jeter MR#: [id number]
[2017-09-15 15:17] VITALS: BP 121/63; PULSE 62; RESP 18; TEMP 98.3; O2SAT 94
--- NOTE | 2017-09-15 15:17 | GIPROC ---
[facility] [address] [facility]. [facility], [address] FLEXIBLE SIGMOIDOSCOPY PROCEDURE REPORT EXAM DATE: 09/15/2017 PATIENT NAME: Essie Jeter MR #: [id number] BIRTHDATE: 1940 ORDER #: [id number] ATTENDING: Brea Buckley MD GALLEY BOY: Anjali Arriaga Jones, Julie, and Latesha Álvarez STATUS: outpatient INDICATIONS: The patient is a 77 yr old female here for a flexible sigmoidoscopy due to diarrhea PROCEDURE PERFORMED: Flexible Sigmoidoscopy with biopsy MEDICATIONS: None and Per Anesthesia. ESTIMATED BLOOD LOSS: None CONSENT: The patient understands the risks and benefits of the procedure and understands that these risks include, but are not limited to: sedation, allergic reaction, infection, perforation and/or bleeding. Alternative means of evaluation and treatment include, among others: physical exam, x-rays, and/or surgical intervention. The patient elects to proceed with this endoscopic procedure. medical equipment was checked for proper function. Hand hygiene and appropriate measures for infection prevention was taken. After the risks, benefits and alternatives of the procedure were thoroughly explained, Informed consent was verified, confirmed and timeout was successfully executed by the treatment team. A digital rectal exam revealed external hemorrhoids The Pentax [id number] endoscope was introduced through the anus and advanced to the descending colon. The prep was 20 % obscured. The instrument was then slowly withdrawn as the colon was fully examined. COLON FINDINGS: Polyp rectum-biopsy random biopsy descending to r/o microscopi colitis. Retroflexed views revealed internal hemorrhoid The scope was then completely withdrawn from the patient and the procedure terminated. ADVERSE EVENTS: There were no complications. IMPRESSIONS: 1. Polyp rectum-biopsy random biopsy descending to r/o microscopi colitis 2. Retroflexed views revealed internal hemorrhoid 3. Revealed external hemorrhoids RECOMMENDATIONS: 1. Await biopsy results 2. Yearly rectal exams RECALL: Return As need for Flexible Sigmoidoscopy Brea Buckley MD eSigned: Brea Buckley MD 09/15/2017 3:17 PM cc:
== END ==
LOC: HEND 11:09
PROVIDERS: ATTEND Internal Medicine Gastroenterology
DX: K29.70 Gastritis, unspecified, without bleeding (principal); K62.1 Rectal polyp; K44.9 Diaphragmatic hernia without obstruction or gangrene; K64.4 Residual hemorrhoidal skin tags; K64.8 Other hemorrhoids
CPT/HCPCS: 88305; 88312

== ENCOUNTER 2017-09-17 16:18 | Emergency (ER) | payer MEDICARE, OTHER ==
[~2017-09-17] VITALS: Ht 152.4 cm; Wt 62.0 kg
[~2017-09-17 16:18] MED LIST changes: -CHLORHEXIDINE GLUCONATE 2 % 1 PACK (2 CLOTHS) TOPICAL PRN; -LACTATED RINGER'S 1000 ML IV PRN; -LIDOCAINE HCL 1% PF 5 ML SYRINGE OTHER ONE; -LOSA50TA PO; -METOPROLOL TARTRATE 25 MG TAB PO PRN; -POVIDONE IODINE 5% (ANTISEPSIS KIT) 4 APPLICATIONS EACH NARE PRN; -PROPOFOL 200 MG/20 ML AMP IV ONE; -SODIUM CHLORID 0.9% 500 ML IV PRN; -ePHEDrine/NS 25 MG/5 ML SYRINGE IV ONE
[2017-09-17 16:26] VITALS: PULSE 89; RESP 16; TEMP 98.2; O2SAT 97
--- NOTE | 2017-09-17 16:42 | PD ---
HPI Chief Complaint: Fall Time Seen by Provider: 16:31 Travel History International Travel<30 days: No Contact w/Intl Traveler<30days: No Traveled to known affect area: No History of Present Illness HPI The patient is a 77-year-old female who presents to the emergency department via EMS from home after several falls. The patient recently underwent left hemiarthroplasty by Dr. Schaefer in August. The patient then was admitted to [facility]. The patient went home yesterday, states she did not have her walker, lives in the house, she fell getting out of the car. The patient also states she fell once again this morning. She cannot reach her walker from the bed. She thinks she may have struck her head, denies any loss of consciousness. She notes minimal left hip pain, denies any progressing pain of the left hip. The patient states that her family called 911 after she fell 4 lift assistance and they brought her to the hospital. The patient denies any chest pain, shortness of breath, nausea, vomiting, or abdominal pain. She denies any focal deficits or weakness of the upper or lower extremities that is new. She denies any dysuria. Symptoms are mild to moderate. 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.) Endocrine: No Gastrointestinal Disorders: No GERD: Yes Glaucoma: No Genitourinary: Yes Headaches: Yes Hepatitis: No Hiatal Hernia: No Heparin Induced Thrombocytopen: No Hypertension: Yes Immune Disorder: Yes (FPC STEROID USE) Implanted Vascular Access Dvce: No Kidney Stones: No Musculoskeletal: Yes (CHRONIC BACK PAIN) Neurologic: Yes (VERTIGO) Psychiatric: Yes Reproductive: No Respiratory: Yes Immunizations Current: Yes Migraines: Yes (IN THE PAST 17YRS-34YRS OLD) Radiation Therapy: No Renal Failure: No Seizures: No Sickle Cell Disease: No Thyroid Disease: No Ulcer: No Menopausal: Yes Past Surgical History Abdominal Surgery: Yes (APPENDECTOMY) AICD: No Appendectomy: Yes Arteriovenous Shunt: No Cardiac Surgery: No Ear Surgery: No Endocrine Surgery: No Eye Surgery: Yes (BILATERAL CATARACTS) Genitourinary Surgery: No Gynecologic Surgery: No Insulin Pump: No Joint Replacement: No Oral Surgery: No Pacemaker: No Thoracic Surgery: No Other Surgery: Yes Social History Alcohol Use: No Tobacco Use: No Substance Use: No Allergies-Medications (Allergen,Severity, Reaction): Coded Allergies: Sulfa (Sulfonamide Antibiotics) (Unverified Allergy, Severe, RASH, 09/17/17 ) chlorzoxazone (Unverified Allergy, Severe, BECAME HYSTERICAL, 09/17/17) methylprednisolone (Unverified Allergy, Severe, UNK, 09/17/17) 200MG penicillin G (Unverified Allergy, Severe, SOB RASH, 09/17/17) Uncoded Allergies: CARBOCAINE (Allergy, Unknown, UNK, 07/19/17) . Reported Meds & Prescriptions Reported Meds & Active Scripts Active Hydrocodone-Acetamin 5-325 mg (Hydrocodone/Acetaminophen) 5 Mg-325 Mg Tablet 1 Tab PO Q6HR PRN Potassium Chloride ER (Potassium Chloride) 10 Meq Cap 10 Meq PO DAILY [Megestrol Liq] 400 MG/10 ML Susp 400 Mg PO DAILY 30 Days Prednisone 5 Mg Tab 5 Mg PO DAILY 30 Days Pantoprazole (Pantoprazole Sodium) 40 Mg Tab 40 Mg PO DAILY 30 Days Ondansetron Odt 4 Mg Tab 4 Mg PO Q4H PRN 30 Days Sodium Chloride 1 Gram Tab 1 Gm PO BID 30 Days Mirtazapine 15 Mg Tab 15 Mg PO HS [address] (Aspirin) 81 Mg Tabdr 81 Mg PO DAILY 30 Days Nifedipine ER 24 HR (Nifedipine) 60 Mg Tab 60 Mg PO Q12HR 30 Days Lopressor (Metoprolol Tartrate) 100 Mg Tab 100 Mg PO Q12HR 30 Days Hydralazine HCl 25 Mg Tablet 50 Mg PO Q8HR 30 Days Catapres (Clonidine) 0.1 Mg Tab 0.1 Mg PO Q12HR 30 Days Atorvastatin (Atorvastatin Calcium) 40 Mg Tab 40 Mg PO HS 30 Days Cholestyramine Light 4 Gm/Pkt Powd 4 Gm PO Q12HR 30 Days 1 pouch of powder contains 4 grams of cholestyramine. [Nystatin Liq] 5 ML Susp 5 Ml SWISH-SWAL QID 10 Days Cipro (Ciprofloxacin HCl) 500 Mg Tab 500 Mg PO Q12HR 5 Days Gnp Vitamin D3 Extra Stre (Cholecalciferol) 1,000 Unit Tab 4,000 Units PO DAILY 30 Days Prednisone 1 Mg Tab 4 Mg PO DAILY 30 Days Ondansetron Odt 4 Mg Tab 4 Mg PO Q6H PRN 30 Days Paroxetine (Paroxetine HCl) 20 Mg Tab 20 Mg PO DAILY 30 Days Eq Acetaminophen (Acetaminophen) 325 Mg Tab 650 Mg PO Q6HR PRN 30 Days Tgt Aspirin (Aspirin) 81 Mg Chw 81 Mg CHEW DAILY 30 Days Nifedipine ER 24 HR (Nifedipine) 60 Mg Tab 60 Mg PO BID 30 Days Lopressor (Metoprolol Tartrate) 100 Mg Tab 100 Mg PO BID 30 Days Hydralazine HCl 25 Mg Tablet 75 Mg PO Q8HR 30 Days Catapres (Clonidine) 0.1 Mg Tab 0.1 Mg PO Q12HR 30 Days Atorvastatin (Atorvastatin Calcium) 40 Mg Tab 40 Mg PO HS 30 Days Arava (Leflunomide) 10 Mg Tab 10 Mg PO 3XWEEK 30 Days Walker Rolling/GetGo (Device) 1 Mis Mis Ea .XX DIRECTED Potassium Chloride ER (Potassium Chloride) 10 Meq Cap 30 Meq PO DAILY 30 Days Hydrochlorothiazide 12.5 Mg Cap 12.5 Mg PO DAILY 30 Days Hydralazine HCl 50 Mg Tablet 50 Mg PO Q8HR 30 Days Hydrocodone-Acetamin 5-325 mg (Hydrocodone/Acetaminophen) 5 Mg-325 Mg Tablet 1 Tab PO Q4H PRN 7 Days Reported Prednisone 1 Mg Tab 4 Mg PO DAILY Nifedipine ER 24 HR (Nifedipine) 60 Mg Tab 60 Mg PO BID Metoprolol Tartrate 50 Mg Tab 50 Mg PO BID Melatonin 5 Mg Tab 5 Mg PO HS Meclizine (Meclizine HCl) 25 Mg Tab 25 Mg PO TID PRN Vitamin D3 (Cholecalciferol) 1,000 Unit Cap 1,000 Units PO DAILY Atorvastatin (Atorvastatin Calcium) 40 Mg Tab 40 Mg PO HS Aspirin 81 Mg Chew 81 Mg CHEW DAILY Review of Systems Except as stated in HPI: all other systems reviewed are Neg General / Constitutional: No: Fever HENT: No: Headaches, Neck Pain Cardiovascular: No: Chest Pain or Discomfort Respiratory: No: Shortness of Breath Gastrointestinal: No: Nausea, Vomiting, Abdominal Pain Genitourinary: No: Dysuria Musculoskeletal: Positive: Weakness, Pain (recent surgery left hip one month ago, mild discomfort that is chronic) Neurologic: No: Change in Mentation Physical Exam Narrative GENERAL: Awake, alert, pleasant 77 year-old female who appears her stated age and is in no acute respiratory distress. SKIN: Focused skin assessment warm/dry. Old appearing ecchymosis to the right upper extremity. HEAD: Atraumatic. Normocephalic. EYES: Pupils equal and round. No scleral icterus. No injection or drainage. ENT: No nasal bleeding or discharge. Mucous membranes pink and moist. NECK: Trachea midline. No JVD. CARDIOVASCULAR: Regular rate and rhythm. No murmur appreciated. RESPIRATORY: No accessory muscle use. Clear to auscultation. Breath sounds equal bilaterally. GASTROINTESTINAL: Abdomen soft, non-tender, nondistended. MUSCULOSKELETAL: No obvious deformities. No clubbing. No cyanosis. No edema. Steri-Strips in place over the lateral left hip. The dressing had no drainage noted over the affected area. Limited flexion of the left hip, states they told her not to flex the left hip after surgery, she is undergone physical therapy. Positive distal pulses. NEUROLOGICAL: Awake and alert. No obvious cranial nerve deficits. Motor grossly within normal limits. Normal speech. PSYCHIATRIC: Appropriate mood and affect; insight and judgment normal. Data Data Last Documented VS Vital Signs Date Time Temp Pulse Resp B/P (MAP) Pulse Ox O2 Delivery O2 Flow Rate FiO2 09/17/17 18:00 86 19 186/78 (114) 97 Room Air 09/17/17 16:[address] Brain W/O Iv Contrast(Rout) (09/17/17 ) Hip, Uni(Ap&Lat) W Ap Pelvis (09/17/17 ) Complete Blood Count With Diff (09/17/17 16:32) Basic Metabolic Panel (Bmp) (09/17/17 16:32) Urinalysis - C+S If Indicated (09/17/17 16:32) Labs Laboratory Tests Test 09/17/17 17:15 09/17/17 17:20 White Blood Count 7.5 TH/MM3 Red Blood Count 3.27 MIL/MM3 Hemoglobin 10.1 GM/DL Hematocrit 28.2 % Mean Corpuscular Volume 86.2 FL Mean Corpuscular Hemoglobin 30.9 PG Mean Corpuscular Hemoglobin Concent 35.9 % Red Cell Distribution Width 15.3 % Platelet Count 230 TH/MM3 Mean Platelet Volume 8.9 FL Neutrophils (%) (Auto) 74.9 % Lymphocytes (%) (Auto) 13.6 % Monocytes (%) (Auto) 10.6 % Eosinophils (%) (Auto) 0.0 % Basophils (%) (Auto) 0.9 % Neutrophils # (Auto) 5.6 TH/MM3 Lymphocytes # (Auto) 1.0 TH/MM3 Monocytes # (Auto) 0.8 TH/MM3 Eosinophils # (Auto) 0.0 TH/MM3 Basophils # (Auto) 0.1 TH/MM3 CBC Comment DIFF FINAL Differential Comment Blood Urea Nitrogen 7 MG/DL Creatinine 0.90 MG/DL Random Glucose 119 MG/DL Calcium Level 8.0 MG/DL Sodium Level 133 MEQ/L Potassium Level 3.9 MEQ/L Chloride Level 103 MEQ/L Carbon Dioxide Level 22.0 MEQ/L Anion Gap 8 MEQ/L Estimat Glomerular Filtration Rate 61 ML/MIN Urine Color LIGHT-YELLOW Urine Turbidity CLEAR Urine pH 7.0 Urine Specific Arab 1.003 Urine Protein NEG mg/dL Urine Glucose (UA) NEG mg/dL Urine Ketones NEG mg/dL Urine Occult Blood NEG Urine Nitrite NEG Urine Bilirubin NEG Urine Urobilinogen LESS THAN 2.0 MG/DL Urine Leukocyte Esterase NEG Urine WBC LESS THAN 1 /hpf Microscopic Urinalysis Comment CULT NOT INDICATED MDM Medical Decision Making Medical Screen Exam Complete: Yes Emergency Medical Condition: Yes Medical Record Reviewed: Yes Interpretation(s) Last Impressions Hip and Pelvis X-Ray 09/17/17 0000 Signed Impressions: Service Date/Time: Sunday, September 17, 2017 16:50 - CONCLUSION: No acute findings in the left hip, with NABIL similar in appearance when compared to 09/06/17. Ravin Justin MD Head CT 09/17/17 0000 Signed Impressions: Service Date/Time: Sunday, September 17, 2017 17:46 - CONCLUSION: Stable CT brain scan with no acute intracranial abnormality and the bony calvarium remains intact Erlin Najera MD Laboratory Tests Test 09/17/17 17:15 09/17/17 17:20 White Blood Count 7.5 TH/MM3 Red Blood Count 3.27 MIL/MM3 Hemoglobin 10.1 GM/DL Hematocrit 28.2 % Mean Corpuscular Volume 86.2 FL Mean Corpuscular Hemoglobin 30.9 PG Mean Corpuscular Hemoglobin Concent 35.9 % Red Cell Distribution Width 15.3 % Platelet Count 230 TH/MM3 Mean Platelet Volume 8.9 FL Neutrophils (%) (Auto) 74.9 % Lymphocytes (%) (Auto) 13.6 % Monocytes (%) (Auto) 10.6 % Eosinophils (%) (Auto) 0.0 % Basophils (%) (Auto) 0.9 % Neutrophils # (Auto) 5.6 TH/MM3 Lymphocytes # (Auto) 1.0 TH/MM3 Monocytes # (Auto) 0.8 TH/MM3 Eosinophils # (Auto) 0.0 TH/MM3 Basophils # (Auto) 0.1 TH/MM3 CBC Comment DIFF FINAL Differential Comment Blood Urea Nitrogen 7 MG/DL Creatinine 0.90 MG/DL Random Glucose 119 MG/DL Calcium Level 8.0 MG/DL Sodium Level 133 MEQ/L Potassium Level 3.9 MEQ/L Chloride Level 103 MEQ/L Carbon Dioxide Level 22.0 MEQ/L Anion Gap 8 MEQ/L Estimat Glomerular Filtration Rate 61 ML/MIN Urine Color LIGHT-YELLOW Urine Turbidity CLEAR Urine pH 7.0 Urine Specific Arab 1.003 Urine Protein NEG mg/dL Urine Glucose (UA) NEG mg/dL Urine Ketones NEG mg/dL Urine Occult Blood NEG Urine Nitrite NEG Urine Bilirubin NEG Urine Urobilinogen LESS THAN 2.0 MG/DL Urine Leukocyte Esterase NEG Urine WBC LESS THAN 1 /hpf Microscopic Urinalysis Comment CULT NOT INDICATED Differential Diagnosis Differential diagnosis includes mechanical fall, left hip fracture, hip dislocation, closed head injury, subdural hemorrhage, hyponatremia, dehydration , which led abnormality, UTI, debility. Narrative Course IV was established, labs are drawn and sent, and the patient was placed on cardiac telemetry monitoring and continuous pulse oximetry monitoring. Pelvis x -ray and x-ray left hip were obtained. CT the brain was obtained. UA was sent to lab. CT the brain is unremarkable, no evidence of subdural hemorrhage. X- ray of the pelvis and left hip is unremarkable. Sodium is 133, UA is negative, no evidence of infection. The patient is medically cleared to go home. She is advised to walk only with a walker and follow-up with physical therapy as previously directed as well as her orthopedic surgeon. Diagnosis Primary Impression: Fall Qualified Codes: W19.XXXA - Unspecified fall, initial encounter Additional Impression: Weakness generalized Patient Instructions: General Instructions Additional Instructions: Follow-up with your primary physician. Return if symptoms worsen or progress. Please provide the patient a copy of her x-ray results and CT results as well as laboratory results at discharge. Walk only with a walker. Follow-up with home physical therapy as previously directed. Med/Other Pt SpecificInfo: No Change to Meds Disposition: 01 DISCHARGE HOME Condition: Stable Aaron Luke MD Sep 17, 2017 16:42
--- NOTE | 2017-09-17 17:50 | RADRPT ---
EXAM DATE/TIME: 09/17/2017 16:50 [facility] COMPARISON: HIP LEFT (AP&LAT 2/3VWS) W AP PELVIS, September 06, 2017, 19:04. INDICATIONS : Left hip pain after fall today. MEDICAL HISTORY : Cardiovascular disease. Hypertension Rheumatoid arthritis. SURGICAL HISTORY : Appendectomy. Left hip replacement. ENCOUNTER: Initial ACUITY: 1 day PAIN SCORE: 6/10 LOCATION: Left hip. FINDINGS: Frontal view of the pelvis and 2 views of left hip. Non-cemented unipolar left total hip arthroplast y is stable in appearance when compared to 09/06/17. No evidence of dislocation or fracture. Diffuse osteopenia. The bony pelvic ring is grossly intact. The arcuate lines the sacrum are symmetric. M oderate degenerative changes in the superior right hip joint. CONCLUSION: No acute findings in the left hip, with NABIL similar in appearance when compared to 09/06/17. Ravin Justin MD on September 17, 2017 at 17:46 Board Certified Radiologist. This report was verified electronically.
[2017-09-17 17:55] LABS: BILIRUBIN, URINE NEG (NEG); BLOOD, URINE NEG (NEG); GLUCOSE,URINE NEG (NEG); KETONE, URINE NEG (NEG); NITRITE,URINE NEG (NEG); URINE COLOR LIGHT-YELLOW (YELLW/STRAW); URINE LEUKOCYTE ESTERASE NEG (NEG)
[2017-09-17 18:00] VITALS: BP 186/78; PULSE 86; RESP 19; O2SAT 97
--- NOTE | 2017-09-17 18:01 | RADRPT ---
EXAM DATE/TIME: 09/17/2017 17:46 [facility] COMPARISON: CT BRAIN W/O CONTRAST, September 09, 2017, 16:27. INDICATIONS : Trauma; fall. RADIATION DOSE: 56.35 CTDIvol (mGy) MEDICAL HISTORY : Cardiovascular disease. Hypertension. SURGICAL HISTORY : Appendectomy. hip surgery ENCOUNTER: Initial ACUITY: 1 day PAIN SCALE: 5/10 LOCATION: cranial TECHNIQUE: Multiple contiguous axial images were obtained of the head. Using automated exposure control and adj ustment of the mA and/or kV according to patient size, radiation dose was kept as low as reasonably a chievable to obtain optimal diagnostic quality images. DICOM format image data is available electro nically for review and comparison. FINDINGS: CEREBRUM: There is moderate brain atrophy with chronic small vessel microvascular ischemic changes in deep whit e matter periventricular which is stable. POSTERIOR FOSSA: The cerebellum and brainstem are intact. The 4th ventricle is midline. The cerebellopontine angle i s unremarkable. EXTRACRANIAL: The visualized portion of the orbits is intact. SKULL: The calvaria is intact. No evidence of skull fracture. CONCLUSION: Stable CT brain scan with no acute intracranial abnormality and the bony calvarium remains intact Erlin Najera MD on September 17, 2017 at 17:56 Board Certified Radiologist. This report was verified electronically.
[2017-09-17 18:38] LABS: AUTOMATED NEUTROPHIL # 5.6 TH/MM3 (1.8-7.7); BASOPHIL # 0.1 TH/MM3 (0-0.2); BASOPHIL % 0.9 % (0.0-2.0); HEMATOCRIT 28.2 % (35.0-46.0); HEMOGLOBIN 10.1 GM/DL (11.6-15.3); LYMPH % 13.6 % (9.0-44.0); MEAN CELL VOLUME 86.2 FL (80.0-100.0); MEAN CORPUSCULAR HEMOGLOBIN 30.9 PG (27.0-34.0); MEAN CORPUSCULAR HGB CONC 35.9 % (32.0-36.0); MEAN PLATELET VOLUME 8.9 FL (7.0-11.0); MONO % 10.6 % (0.0-8.0); MONOCYTE # 0.8 TH/MM3 (0-0.9); NEUT % 74.9 % (16.0-70.0); PLATELET COUNT 230 TH/MM3 (150-450); RED BLOOD COUNT 3.27 MIL/MM3 (4.00-5.30); RED CELL DISTRIBUTION WIDTH 15.3 % (11.6-17.2); WHITE BLOOD COUNT 7.5 TH/MM3 (4.0-11.0)
[2017-09-17 18:52] LABS: CREATININE 0.9 MG/DL (0.50-1.00)
== END 2017-09-17 20:06 | disposition home or self-care (01) ==
LOC: NEPC 16:18
DX: R53.1 Weakness (principal); M25.552 Pain in left hip; M06.9 Rheumatoid arthritis, unspecified; F41.9 Anxiety disorder, unspecified; F32.9 Major depressive disorder, single episode, unspecified; I10 Essential (primary) hypertension; E78.00 Pure hypercholesterolemia, unspecified; K21.9 Gastro-esophageal reflux disease without esophagitis; Z79.82 Long term (current) use of aspirin
CPT/HCPCS: 70450; 73502; 80048; 81001; 85025